=== PATIENT | female | born 1950 | race Hispanic/Latino ===

== ENCOUNTER 2016-08-13 08:58 | Inpatient (IN) | payer MEDICAID, MEDICARE ==
--- NOTE | 2016-08-13 09:25 | XRay Report ---
AP CHEST: HISTORY: chest pain Compared to 03/08/15. Heart size is borderline. Mild pulmonary venous congestion is suspected. Trace left pleural effusion is also suspected. No consolidation or pneumothorax. The bony structures are intact. IMPRESSION: Correlate for mild CHF or volume overload.
[2016-08-13 09:36] LABS: Hematocrit 33.5 % (30.3-42.9); Hemoglobin 10.5 gm/dl (10.1-14.3); Mean Corpuscular HGB Conc 31 % (30-34); Mean Corpuscular Hemoglobin 26 pg (28-32); Mean Corpuscular Volume 84 fl (79-97); Platelet Count 215 K/mm3 (140-440); Red Blood Count 3.99 M/mm3 (3.65-5.03); Red Cell Distribution Width 15.4 % (13.2-15.2); White Blood Count 9.8 K/mm3 (4.5-11.0)
[2016-08-13 09:53] LABS: Anion Gap 17 mmol/L; Blood Urea Nitrogen 9 mg/dL (7-17); Calcium 8.5 mg/dL (8.4-10.2); Carbon Dioxide 35 mmol/L (22-30); Chloride 96.1 mmol/L (98-107); Glucose 169 mg/dL (65-100); Potassium 3.9 mmol/L (3.6-5.0); Sodium 144 mmol/L (137-145)
[2016-08-13 09:55] LABS: ISTAT Base Excess 16; ISTAT HCO3 42.8; ISTAT PCO2 91.6 (35-45); ISTAT PH 7.277 (7.35-7.45); ISTAT PO2 64 (80-105); ISTAT SO2 87; ISTAT TCO2 46
[2016-08-13 10:18] LABS: Albumin 3.1 g/dL (3.9-5); Albumin/Globulin Ratio 0.8 %; Bilirubin,Total 0.3 mg/dL (0.1-1.2); INR 1.56 (0.87-1.13); Magnesium 2.6 mg/dL (1.7-2.3); Partial Thromboplastin Time 36.5 Sec. (24.2-36.6); Total Protein 6.8 g/dL (6.3-8.2)
--- NOTE | 2016-08-13 10:18 | Admit Criteria Form ---
Admission Criteria Documentation: RESPIRATORY FAILURE GRG Clinical Indications for Admission to Inpatient Care (Place 'X' for any and all applicable criteria): Hospital admission is needed for appropriate care of the patient because of acute respiratory failure or insufficiency as indicated by ANY ONE of the following(1)(2)(3)(4)(5)(6)(7)(8): [ X]I. Mechanical ventilation needed (acute invasive or noninvasive) [ ]II. Severe ventilation deficit as indicated by ANY ONE of the following (9) [ ]a) Respiratory acidosis (pH less than 7.32 and partial pressure of carbon dioxide greater than 40 mm Hg (5.3 kPa)) [ ]b) Partial pressure of carbon dioxide greater than 44 mm Hg (5.9 kPa ) (new) [ ]c) Airflow measurements less than 25% of predicted (eg, peak expiratory flow rate less than 100 L/minute) [ ]d) Forced vital capacity less than 15 mL/kg of ideal body weight, or 50% decrease in vital capacity from baseline [ ]III. Noncardiac pulmonary edema not resolving with rapid emergency treatment (8) [ ]IV. Severe respiratory distress as indicated by ANY ONE of the following: [ ]a) Severe tachypnea (respiratory rate greater than 30, greater than 45 for 6-month-old, greater than 60 for ) [ ]b) Severe hypoxemia (partial pressure of oxygen less than 50 mm Hg ( 6.7 kPa) on greater than 50% oxygen or partial pressure of oxygen to FIO2 ratio less than 200) [ ]c) Mental status deterioration from respiratory disease [ ]V. Airway obstruction or inadequate protection [A](10)(11) The original [employer] content created by [employer] has been revised. The portions of the content which have been revised are identified through the use of italic text or in bold, and [employer] has neither reviewed nor approved the modified material. All other unmodified content is copyright [employer]. Please see references footnoted in the original [employer] edition 2016 Admission Criteria Met: Yes
[2016-08-13 10:19] LABS: Bilirubin,Direct 0.2 mg/dL (0-0.2); Bilirubin,Indirect 0.1 mg/dL
[2016-08-13 10:27] LABS: Bilirubin,Urine NEG (Negative); Blood,Urine NEG (Negative); Ketones,Urine 20 mg/dL (Negative); Leukocyte Esterase,Urine NEG (Negative); Mucus,Urine FEW /HPF; Nitrite,Urine NEG (Negative); Protein,Urine <15 mg/dL mg/dL (Negative); Urobilinogen,Urine < 2.0 mg/dL (<2.0)
[2016-08-13 10:55] LABS: Basophils % (Manual) 0 % (0.0-1.8); Blastocytes % (Manual) 0 %; Eosinophils % (Manual) 0 % (0.0-4.3)
[2016-08-13 10:56] LABS: Diff Status Complete; Hypochromasia 1+; Ovalocytes Few; Stomatocytes 1+
--- NOTE | 2016-08-13 11:13 | History and Physical Report ---
History of Present Illness Date of examination: 08/13/16 Date of admission: 08/13/16 Chief complaint: Shortness of breath History of present illness: Patient is resident of SNF with history of COPD, anxiety, morbid obesity. She presented with shortness of breath and depressed conscious level. Chest x ray showed pulmonary edema. She was diagnosed with acute CHF, COPD eaxcerbation. She was in respiratory distress, therefore given Lasix iv, put on BIPAP and is being admitted. She is very lethargic now, on BIPAP and cannot provide much history. Past History Past Medical History: COPD, DVT, GERD, hypertension Past Surgical History: hysterectomy, tonsillectomy Social history: AND/DNR-allow natural , other (Lives in SNF) Family history: CAD Medications and Allergies Allergies Allergy/AdvReac Type Severity Reaction Status Date / Time Sulfa (Sulfonamide Allergy Anaphylaxis Verified 03/04/13 09:17 Antibiotics) Home Medications Medication Instructions Recorded Confirmed Last Taken Type ALPRAZolam [Xanax TAB] 0.5 mg PO QID PRN 08/13/16 08/13/16 Unknown History Albuterol Sulfate [Ventolin HFA] 2 puff IH Q4H PRN 08/13/16 08/13/16 Unknown History Baclofen [Lioresal] 10 mg PO TID 08/13/16 08/13/16 Unknown History Brimonidine 0.15% [Alphagan P 100 drops OD TID 08/13/16 08/13/16 Unknown History 0.15%] Budesoni/Formoterol 80-4.5(Nf) 2 puff IH BID 08/13/16 08/13/16 Unknown History [Symbicort 80-4.5 (Nf)] Cyanocobalamin [Vitamin B-12] 1,000 mcg IM QMONTH 08/13/16 08/13/16 Unknown History Famotidine [Pepcid] 10 mg PO BID 08/13/16 08/13/16 Unknown History Fluorometholone [Fml Forte 0.25% 1 drop OP QID 08/13/16 08/13/16 Unknown History eye drops] Furosemide [Lasix TAB] 40 mg PO QDAY 08/13/16 08/13/16 Unknown History Gabapentin [Neurontin] 800 mg PO Q8H 08/13/16 08/13/16 Unknown History Lactobac Cmb #3/Fos/Pantethine 1 each PO DAILY 08/13/16 08/13/16 Unknown History [Probiotic & Acidophilus Cap] Latanoprost 0.005% [Xalatan 0.005%] 1 drop OP QPM 08/13/16 08/13/16 Unknown History Loperamide [Imodium] 2 mg PO Q2HR PRN 08/13/16 08/13/16 Unknown History Mag Hydrox/Al Hydrox/Simeth 30 ml PO TID 08/13/16 08/13/16 Unknown History [Maalox Advanced Suspension] Melatonin/Pyridoxine [Melatonin 3 2 tab PO DAILY 08/13/16 08/13/16 Unknown History mg Tablet] Multivitamin Tab [Multiple Vitamin 1 each PO QDAY 08/13/16 08/13/16 Unknown History TAB (Theragran)] Oxycodone HCl/Acetaminophen 1 each PO Q6HR PRN 08/13/16 08/13/16 Unknown History [Percocet 7.5/325 mg] Potassium Citrate [Potassium 20 meq PO DAILY 08/13/16 08/13/16 Unknown History Citrate ER] Rivaroxaban [Xarelto] 15 mg PO QHS 08/13/16 08/13/16 Unknown History Sertraline [Zoloft] 50 mg PO QDAY 08/13/16 08/13/16 Unknown History amLODIPine [Norvasc] 10 mg PO DAILY 08/13/16 08/13/16 Unknown History guaiFENesin DM [Robitussin Dm] 10 ml PO Q6HR PRN 08/13/16 08/13/16 Unknown History methOCARBAMOL [Robaxin TAB] 500 mg PO Q6H PRN 08/13/16 08/13/16 Unknown History Review of Systems ROS unobtainable: due to mental status Exam - Physical Exam Narrative exam: Gen: appearance :Not in acute distress,morbidly obese HEENT: normocephalic, atraumatic Neck :supple no JVD Lungs: bilat basal crackles, no wheezes Heart:S1 and S2 regular, no murmurs, no gallop, no rubs Abdomen soft, non-tender, non-distended, normal bowel sounds Extremities: no edema, no clubbing, or cyanosis Neuro : Awake alert oriented 3, no focal neurological signs Psych: calm - Constitutional Vitals: Temp Pulse Resp BP Pulse Ox 98.2 F 97 H 40 H 122/73 85 08/13/16 09:03 08/13/16 09:05 08/13/16 09:16 08/13/16 09:05 08/13/16 09:16 General appearance: Present: no acute distress, other - EENT Eyes: Present: PERRL ENT: hearing intact, other (BIPAP mask on) - Neck Neck: Present: supple, normal ROM - Respiratory Respiratory effort: normal Respiratory: bilateral: diminished, rales, rhonchi - Cardiovascular Rhythm: regular Heart Sounds: Present: S1 & S2 (S1 and S2 reg) - Extremities Extremities: no ischemia, No edema, normal temperature, normal color - Abdominal General gastrointestinal: Present: soft, non-tender, non-distended, normal bowel sounds - Integumentary Integumentary: Present: warm, dry - Musculoskeletal Musculoskeletal: strength equal bilaterally - Psychiatric Psychiatric: appropriate mood/affect - Neurologic Neurologic: moves all extremities, other (Lethargic) Results - Labs CBC & Chem 7: 08/14/16 07:27 08/16/16 07:06 Labs: Abnormal lab results 08/13/16 08/13/16 08/13/16 Range/Units 09:01 09:20 09:20 MCH 26 L (28-32) pg RDW 15.4 H (13.2-15.2) % Seg Neuts % (Manual) 76.0 H (40.0-70.0) % Lymphocytes % (Manual) 10.0 L (13.4-35.0) % Lymphocytes # (Manual) 1.0 L (1.2-5.4) K/mm3 PT (12.2-14.9) Sec. INR (0.87-1.13) POC ABG pH (7.35-7.45) POC ABG pCO2 (35-45) POC ABG pO2 (80-105) Chloride 96.1 L (98-107) mmol/L Carbon Dioxide 35 H (22-30) mmol/L Creatinine 0.5 L (0.7-1.2) mg/dL Glucose 169 H (65-100) mg/dL POC Glucose 176 H (70-105) Magnesium (1.7-2.3) mg/dL Alkaline Phosphatase (35-129) units/L Albumin (3.9-5) g/dL 08/13/16 08/13/16 08/13/16 Range/Units 09:45 09:45 09:46 MCH (28-32) pg RDW (13.2-15.2) % Seg Neuts % (Manual) (40.0-70.0) % Lymphocytes % (Manual) (13.4-35.0) % Lymphocytes # (Manual) (1.2-5.4) K/mm3 PT 18.6 H (12.2-14.9) Sec. INR 1.56 H (0.87-1.13) POC ABG pH 7.277 L (7.35-7.45) POC ABG pCO2 91.6 H (35-45) POC ABG pO2 64 L (80-105) Chloride (98-107) mmol/L Carbon Dioxide (22-30) mmol/L Creatinine (0.7-1.2) mg/dL Glucose (65-100) mg/dL POC Glucose (70-105) Magnesium 2.60 H (1.7-2.3) mg/dL Alkaline Phosphatase 140 H (35-129) units/L Albumin 3.1 L (3.9-5) g/dL Assessment and Plan Acute on chronic resp failure with hypoxia and hypercarbiadue to COPD exacerbation and acute CHF. Admit to Tele, BIPAP, solumedrol, Lasix, supplemental Oxygen. Cardiology and Pulm consult Acute CHF. new diagnosis. get Echo, Lasix, cardiology COPD exacerbation. solumedrol, Duoneb Hypertension Acute metabolic encephalopathy due to hypercarbia History of DVT. On Xarelto DVT prophylaxis. On Xarelto DNR
[2016-08-13] MEDS ORDERED: LASIX IV ONE (11:15)
[2016-08-13] MEDS ORDERED: TYLENOL PO PRN (11:35)
[2016-08-13] MEDS ORDERED: ZOFRAN IV PRN (11:35)
[2016-08-13] MEDS ORDERED: MILK OF MAGNESIA PO PRN (11:35)
[2016-08-13] MEDS ORDERED: PROVENTIL IH PRN (11:35)
[2016-08-13] MEDS ORDERED: DULCOLAX PR PRN (11:35)
--- NOTE | 2016-08-13 11:39 | Emergency Department Report ---
ED Shortness of Breath HPI - General Chief Complaint: Dyspnea/Respdistress Stated Complaint: RESPIRATORY DISTRESS Time Seen by Provider: 08/13/16 09:21 Source: EMS Mode of arrival: Stretcher Limitations: Altered Mental Status - History of Present Illness Initial Comments: The patient is a long-term resident. I am told that she was administered "Lasix" prior to associate drafter arrival. Medics did not know the dose or the route. The patient was found to be in respiratory distress although her pulse oximetry they state was 90. She was somewhat stuporous I believe on their arrival as they stated that she was sleeping and they couldn't wake up. She arrives in a persistent obtunded condition. Paramedics placed the patient on Cipro And transported her for further evaluation. On arrival she is unable to provide any historical information. MD Complaint: shortness of breath -: Gradual, This morning Known History Of: congestive heart failure - Related Data Home Medications Medication Instructions Recorded Confirmed Last Taken Budesoni/Formoterol 80-4.5(Nf) 2 puff IH BID 03/19/14 11/04/15 03/05/15 [Symbicort 80-4.5 (Nf)] Ipratropium/Albuterol Sulfate 1 ampul IH Q6HRT 03/19/14 11/04/15 03/05/15 [Duoneb 0.5 mg-3 mg/3 ml Soln] Latanoprost [Xalatan 0.005% eye 1 drop OU QPM 03/19/14 11/04/15 03/05/15 drops] amLODIPine [Norvasc] 10 mg PO DAILY 03/19/14 11/04/15 03/05/15 ALPRAZolam [Xanax TAB] 1 mg PO QID 11/04/15 11/04/15 Unknown Albuterol Sulfate [Ventolin HFA] 2 puff IH Q4H PRN 11/04/15 11/04/15 Unknown Baclofen [Lioresal] 10 mg PO QHS 11/04/15 11/04/15 Unknown Brimonidine 0.15% [Alphagan P 1 drops OP Q8H 11/04/15 11/04/15 Unknown 0.15%] Cyanocobalamin [Vitamin B-12] 1,000 mcg IM QMONTH 11/04/15 11/04/15 Unknown Fluorometholone [Fml] 5 ml OP QID 11/04/15 11/04/15 Unknown Gabapentin [Neurontin] 600 mg PO Q8H 11/04/15 11/04/15 Unknown Ibuprofen [Motrin] 600 mg PO Q8H PRN 11/04/15 11/04/15 Unknown Lactobac Cmb #3/Fos/Pantethine 1 each PO DAILY 11/04/15 11/04/15 Unknown [Probiotic & Acidophilus Cap] Melatonin 3 mg PO QHS 11/04/15 11/04/15 Unknown Methocarbamol [Robaxin TAB] 750 mg PO Q6H 11/04/15 11/04/15 Unknown Morphine Sulfate [Morphine Sulfate 15 mg PO BID 11/04/15 11/04/15 Unknown ER] Oxycodone HCl/Acetaminophen 1 each PO Q6HR 11/04/15 11/04/15 Unknown [Percocet 10/325 mg] Rivaroxaban [Xarelto] 1 tab PO QHS 11/04/15 11/04/15 Unknown Sertraline [Zoloft] 25 mg PO QDAY 11/04/15 11/04/15 Unknown Previous Rx's Medication Instructions Recorded Last Taken Type Famotidine [Pepcid] 10 mg PO BID #20 tablet 03/11/15 Unknown Rx Nicotine [Habitrol] 21 mg TD QDAY patch 03/11/15 Unknown Rx predniSONE [Deltasone] 10 mg PO QDAY #30 tablet 03/11/15 Unknown Rx Clindamycin [Clindamycin CAP] 300 mg PO Q8H #20 cap 11/04/15 Unknown Rx Allergies Allergy/AdvReac Type Severity Reaction Status Date / Time Sulfa (Sulfonamide Allergy Anaphylaxis Verified 03/04/13 09:17 Antibiotics) ED Review of Systems ROS: Stated complaint: RESPIRATORY DISTRESS Other details as noted in HPI Comment: Unobtainable due to pts medical conditions ED Past Medical Hx - Past Medical History Hx Hypertension: Yes Hx Deep Vein Thrombosis: Yes Hx GERD: Yes Hx COPD: Yes Additional medical history: fx back, chronic back pain. sleep apnea, spinal fracture,DVT,anxiety,medication overdose - Surgical History Additional Surgical History: partial hysterectomy. tonsillectomy - Social History Smoking Status: Unknown if ever smoked - Medications Home Medications: Home Medications Medication Instructions Recorded Confirmed Last Taken Type Budesoni/Formoterol 80-4.5(Nf) 2 puff IH BID 03/19/14 11/04/15 03/05/15 History [Symbicort 80-4.5 (Nf)] Ipratropium/Albuterol Sulfate 1 ampul IH Q6HRT 03/19/14 11/04/15 03/05/15 History [Duoneb 0.5 mg-3 mg/3 ml Soln] Latanoprost [Xalatan 0.005% eye 1 drop OU QPM 03/19/14 11/04/15 03/05/15 History drops] amLODIPine [Norvasc] 10 mg PO DAILY 03/19/14 11/04/15 03/05/15 History Famotidine [Pepcid] 10 mg PO BID #20 tablet 03/11/15 11/04/15 Unknown Rx Nicotine [Habitrol] 21 mg TD QDAY patch 03/11/15 11/04/15 Unknown Rx predniSONE [Deltasone] 10 mg PO QDAY #30 tablet 03/11/15 11/04/15 Unknown Rx ALPRAZolam [Xanax TAB] 1 mg PO QID 11/04/15 11/04/15 Unknown History Albuterol Sulfate [Ventolin HFA] 2 puff IH Q4H PRN 11/04/15 11/04/15 Unknown History Baclofen [Lioresal] 10 mg PO QHS 11/04/15 11/04/15 Unknown History Brimonidine 0.15% [Alphagan P 1 drops OP Q8H 11/04/15 11/04/15 Unknown History 0.15%] Clindamycin [Clindamycin CAP] 300 mg PO Q8H #20 cap 11/04/15 Unknown Rx Cyanocobalamin [Vitamin B-12] 1,000 mcg IM QMONTH 11/04/15 11/04/15 Unknown History Fluorometholone [Fml] 5 ml OP QID 11/04/15 11/04/15 Unknown History Gabapentin [Neurontin] 600 mg PO Q8H 11/04/15 11/04/15 Unknown History Ibuprofen [Motrin] 600 mg PO Q8H PRN 11/04/15 11/04/15 Unknown History Lactobac Cmb #3/Fos/Pantethine 1 each PO DAILY 11/04/15 11/04/15 Unknown History [Probiotic & Acidophilus Cap] Melatonin 3 mg PO QHS 11/04/15 11/04/15 Unknown History Methocarbamol [Robaxin TAB] 750 mg PO Q6H 11/04/15 11/04/15 Unknown History Morphine Sulfate [Morphine Sulfate 15 mg PO BID 11/04/15 11/04/15 Unknown History ER] Oxycodone HCl/Acetaminophen 1 each PO Q6HR 11/04/15 11/04/15 Unknown History [Percocet 10/325 mg] Rivaroxaban [Xarelto] 1 tab PO QHS 11/04/15 11/04/15 Unknown History Sertraline [Zoloft] 25 mg PO QDAY 11/04/15 11/04/15 Unknown History ED Physical Exam - General Limitations: Other General appearance: obtunded - Head Head exam: Present: atraumatic, normocephalic - Eye Eye exam: Absent: scleral icterus - ENT ENT exam: Present: mucous membranes dry - Neck Neck exam: Absent: tenderness, meningismus - Respiratory Respiratory exam: Present: respiratory distress, decreased breath sounds - Cardiovascular Cardiovascular Exam: Present: regular rate, normal rhythm. Absent: systolic murmur, diastolic murmur, rubs, gallop - GI/Abdominal GI/Abdominal exam: Present: soft, normal bowel sounds. Absent: distended, tenderness, guarding, rebound - Extremities Exam Extremities exam: Present: pedal edema. Absent: calf tenderness - Back Exam Back exam: Present: other (not fully visualized) - Neurological Exam Neurological exam: Present: other (no acute focal deficit) ED Course Vital Signs 08/13/16 08/13/16 08/13/16 09:03 09:05 09:16 Temperature 98.2 F Pulse Rate 102 H 97 H Respiratory 26 H 40 H Rate Blood Pressure 122/73 122/73 O2 Sat by Pulse 91 98 85 Oximetry ED Medical Decision Making - Lab Data Result diagrams: 08/13/16 09:20 08/13/16 09:20 Laboratory Results - last 24 hr 08/13/16 08/13/16 08/13/16 09:01 09:20 09:20 WBC 9.8 RBC 3.99 Hgb 10.5 Hct 33.5 MCV 84 MCH 26 L MCHC 31 RDW 15.4 H Plt Count 215 Add Manual Diff Complete Total Counted 100 Seg Neuts % (Manual) 76.0 H Band Neutrophils % 7.0 Lymphocytes % (Manual) 10.0 L Reactive Lymphs % (Man) 0 Monocytes % (Manual) 7.0 Eosinophils % (Manual) 0 Basophils % (Manual) 0 Metamyelocytes % 0 Myelocytes % 0 Promyelocytes % 0 Blast Cells % 0 Nucleated RBC % Not Reportable Seg Neutrophils # Man 7.4 Band Neutrophils # 0.7 Lymphocytes # (Manual) 1.0 L Abs React Lymphs (Man) 0.0 Monocytes # (Manual) 0.7 Eosinophils # (Manual) 0.0 Basophils # (Manual) 0.0 Metamyelocytes # 0.0 Myelocytes # 0.0 Promyelocytes # 0.0 Blast Cells # 0.0 WBC Morphology Not Reportable Hypersegmented Neuts Not Reportable Hyposegmented Neuts Not Reportable Hypogranular Neuts Not Reportable Smudge Cells Not Reportable Toxic Granulation Not Reportable Toxic Vacuolation Not Reportable Dohle Bodies Not Reportable Pelger-Huet Anomaly Not Reportable Ke Rods Not Reportable Platelet Estimate Appears normal Clumped Platelets Not Reportable Plt Clumps, EDTA Not Reportable Large Platelets Not Reportable Giant Platelets Not Reportable Platelet Satelliting Not Reportable Plt Morphology Comment Not Reportable RBC Morphology Not Reportable Dimorphic RBCs Not Reportable Polychromasia Not Reportable Hypochromasia 1+ Poikilocytosis Not Reportable Anisocytosis Not Reportable Microcytosis Not Reportable Macrocytosis Not Reportable Spherocytes Not Reportable Pappenheimer Bodies Not Reportable Sickle Cells Not Reportable Target Cells Not Reportable Tear Drop Cells Not Reportable Ovalocytes Few Stomatocytes 1+ Helmet Cells Not Reportable Summers-Shambaugh Bodies Not Reportable Haines Rings Not Reportable Caleb Cells Not Reportable Bite Cells Not Reportable Crenated Cell Not Reportable Elliptocytes Not Reportable Acanthocytes (Spur) Not Reportable Rouleaux Not Reportable Hemoglobin C Crystals Not Reportable Schistocytes Not Reportable Malaria parasites Not Reportable Sanjeev Bodies Not Reportable Hem Pathologist Commnt No PT INR APTT POC ABG pH POC ABG pCO2 POC ABG pO2 POC ABG HCO3 POC ABG Total CO2 POC ABG O2 Sat POC ABG Base Excess FiO2 Sodium 144 Potassium 3.9 Chloride 96.1 L Carbon Dioxide 35 H Anion Gap 17 BUN 9 Creatinine 0.5 L Estimated GFR > 60 BUN/Creatinine Ratio 18.00 Glucose 169 H POC Glucose 176 H Lactic Acid Calcium 8.5 Magnesium Total Bilirubin Direct Bilirubin Indirect Bilirubin AST ALT Alkaline Phosphatase Troponin T < 0.010 NT-Pro-B Natriuret Pep Total Protein Albumin Albumin/Globulin Ratio Urine Color Urine Turbidity Urine pH Ur Specific Homer Urine Protein Urine Glucose (UA) Urine Ketones Urine Blood Urine Nitrite Urine Bilirubin Urine Urobilinogen Ur Leukocyte Esterase Urine WBC (Auto) Urine RBC (Auto) U Epithel Cells (Auto) Urine Mucus Blood Type Antibody Screen KARLA Antibody Screen 08/13/16 08/13/16 08/13/16 09:45 09:45 09:45 WBC RBC Hgb Hct MCV MCH MCHC RDW Plt Count Add Manual Diff Total Counted Seg Neuts % (Manual) Band Neutrophils % Lymphocytes % (Manual) Reactive Lymphs % (Man) Monocytes % (Manual) Eosinophils % (Manual) Basophils % (Manual) Metamyelocytes % Myelocytes % Promyelocytes % Blast Cells % Nucleated RBC % Seg Neutrophils # Man Band Neutrophils # Lymphocytes # (Manual) Abs React Lymphs (Man) Monocytes # (Manual) Eosinophils # (Manual) Basophils # (Manual) Metamyelocytes # Myelocytes # Promyelocytes # Blast Cells # WBC Morphology Hypersegmented Neuts Hyposegmented Neuts Hypogranular Neuts Smudge Cells Toxic Granulation Toxic Vacuolation Dohle Bodies Pelger-Huet Anomaly Ke Rods Platelet Estimate Clumped Platelets Plt Clumps, EDTA Large Platelets Giant Platelets Platelet Satelliting Plt Morphology Comment RBC Morphology Dimorphic RBCs Polychromasia Hypochromasia Poikilocytosis Anisocytosis Microcytosis Macrocytosis Spherocytes Pappenheimer Bodies Sickle Cells Target Cells Tear Drop Cells Ovalocytes Stomatocytes Helmet Cells Summers-Shambaugh Bodies Haines Rings Caleb Cells Bite Cells Crenated Cell Elliptocytes Acanthocytes (Spur) Rouleaux Hemoglobin C Crystals Schistocytes Malaria parasites Sanjeev Bodies Hem Pathologist Commnt PT 18.6 H INR 1.56 H APTT 36.5 POC ABG pH POC ABG pCO2 POC ABG pO2 POC ABG HCO3 POC ABG Total CO2 POC ABG O2 Sat POC ABG Base Excess FiO2 Sodium Potassium Chloride Carbon Dioxide Anion Gap BUN Creatinine Estimated GFR BUN/Creatinine Ratio Glucose POC Glucose Lactic Acid 1.20 Calcium Magnesium 2.60 H Total Bilirubin 0.30 Direct Bilirubin 0.2 Indirect Bilirubin 0.1 AST 12 ALT 9 Alkaline Phosphatase 140 H Troponin T NT-Pro-B Natriuret Pep 695.0 Total Protein 6.8 Albumin 3.1 L Albumin/Globulin Ratio 0.8 Urine Color Urine Turbidity Urine pH Ur Specific Homer Urine Protein Urine Glucose (UA) Urine Ketones Urine Blood Urine Nitrite Urine Bilirubin Urine Urobilinogen Ur Leukocyte Esterase Urine WBC (Auto) Urine RBC (Auto) U Epithel Cells (Auto) Urine Mucus Blood Type Antibody Screen KARLA Antibody Screen 08/13/16 08/13/16 08/13/16 09:46 10:07 10:10 WBC RBC Hgb Hct MCV MCH MCHC RDW Plt Count Add Manual Diff Total Counted Seg Neuts % (Manual) Band Neutrophils % Lymphocytes % (Manual) Reactive Lymphs % (Man) Monocytes % (Manual) Eosinophils % (Manual) Basophils % (Manual) Metamyelocytes % Myelocytes % Promyelocytes % Blast Cells % Nucleated RBC % Seg Neutrophils # Man Band Neutrophils # Lymphocytes # (Manual) Abs React Lymphs (Man) Monocytes # (Manual) Eosinophils # (Manual) Basophils # (Manual) Metamyelocytes # Myelocytes # Promyelocytes # Blast Cells # WBC Morphology Hypersegmented Neuts Hyposegmented Neuts Hypogranular Neuts Smudge Cells Toxic Granulation Toxic Vacuolation Dohle Bodies Pelger-Huet Anomaly Ke Rods Platelet Estimate Clumped Platelets Plt Clumps, EDTA Large Platelets Giant Platelets Platelet Satelliting Plt Morphology Comment RBC Morphology Dimorphic RBCs Polychromasia Hypochromasia Poikilocytosis Anisocytosis Microcytosis Macrocytosis Spherocytes Pappenheimer Bodies Sickle Cells Target Cells Tear Drop Cells Ovalocytes Stomatocytes Helmet Cells Summers-Shambaugh Bodies Haines Rings Caleb Cells Bite Cells Crenated Cell Elliptocytes Acanthocytes (Spur) Rouleaux Hemoglobin C Crystals Schistocytes Malaria parasites Sanjeev Bodies Hem Pathologist Commnt PT INR APTT POC ABG pH 7.277 L POC ABG pCO2 91.6 H POC ABG pO2 64 L POC ABG HCO3 42.8 POC ABG Total CO2 46 POC ABG O2 Sat 87 POC ABG Base Excess 16 FiO2 30 Sodium Potassium Chloride Carbon Dioxide Anion Gap BUN Creatinine Estimated GFR BUN/Creatinine Ratio Glucose POC Glucose Lactic Acid Calcium Magnesium Total Bilirubin Direct Bilirubin Indirect Bilirubin AST ALT Alkaline Phosphatase Troponin T NT-Pro-B Natriuret Pep Total Protein Albumin Albumin/Globulin Ratio Urine Color Yellow Urine Turbidity Clear Urine pH 5.0 Ur Specific Homer 1.013 Urine Protein <15 mg/dl Urine Glucose (UA) Neg Urine Ketones 20 Urine Blood Neg Urine Nitrite Neg Urine Bilirubin Neg Urine Urobilinogen < 2.0 Ur Leukocyte Esterase Neg Urine WBC (Auto) 1.0 Urine RBC (Auto) 2.0 U Epithel Cells (Auto) < 1.0 Urine Mucus Few Blood Type O POSITIVE Antibody Screen TNR KARLA Antibody Screen Negative - EKG Data -: EKG Interpreted by Me EKG shows normal: sinus rhythm, axis, intervals, QRS complexes, ST-T waves Rate: normal - EKG Data Interpretation: no acute changes - Radiology Data interpreted by me: Patient improved on BiPAP. Her blood gas was consistent with hypercapnic respiratory failure. She was given additional Lasix. She was admitted by Dr. Whitney to the hospitalist service. It is noted that she has a fully executed DO NOT RESUSCITATE. Critical Care Time: Yes Critical care time in (mins) excluding proc time.: 35 Critical care attestation.: If time is entered above; I have spent that time in minutes in the direct care of this critically ill patient, excluding procedure time. ED Disposition Clinical Impression: Congestive heart failure Qualifiers: Congestive heart failure type: combined Congestive heart failure chronicity: acute on chronic Qualified Code(s): I50.43 - Acute on chronic combined systolic (congestive) and diastolic (congestive) heart failure Hypercapnic respiratory failure Qualifiers: Chronicity: acute on chronic Qualified Code(s): J96.22 - Acute and chronic respiratory failure with hypercapnia Disposition: 09 OP ADMIT IP TO THIS HOSP Is pt being admited?: Yes Does the pt Need Aspirin: Yes Condition: Stable Referrals: PRIMARY CARE, [Primary Care Provider] - 3-5 Days
[2016-08-13] MEDS ORDERED: BABY ASPIRIN PO ONE (12:00)
[2016-08-13] MEDS: ZOSYN/NS 4.5GM/100ML 4.5 GM/100 ML VIAL IV SCH ×3 (12:15→23:27)
[2016-08-13] MEDS: LEVAQUIN 750MG/150ML 750 MG/150 ML BAG IV SCH (13:29)
[2016-08-13 14:44] LABS: ISTAT Base Excess 24; ISTAT PCO2 81.4 (35-45); ISTAT PH 7.387 (7.35-7.45); ISTAT PO2 76 (80-105); ISTAT SO2 94; ISTAT TCO2 > 50
[2016-08-13] MEDS ORDERED: WATER FOR INJ (PF) 10 ML ONE ×2 (15:23→21:04)
[2016-08-13] MEDS: HEPARIN SUB-Q SCH ×2 (15:33→21:33)
--- NOTE | 2016-08-13 16:39 | Consultation ---
History of Present Illness Consult date: 08/13/16 Requesting physician: LOREE GIRON Reason for consult: COPD (A), other (Acute on Chronic hypoxemic Hypercapnic Respiratory Failure) History of present illness: PULMONARY/CCM CONSULT NOTE (Full dictation # [id number]) Please see dictated notes for full details Medications and Allergies Allergies Allergy/AdvReac Type Severity Reaction Status Date / Time Sulfa (Sulfonamide Allergy Anaphylaxis Verified 03/04/13 09:17 Antibiotics) Home Medications Medication Instructions Recorded Confirmed Last Taken Type ALPRAZolam [Xanax TAB] 0.5 mg PO QID PRN 08/13/16 08/13/16 Unknown History Albuterol Sulfate [Ventolin HFA] 2 puff IH Q4H PRN 08/13/16 08/13/16 Unknown History Baclofen [Lioresal] 10 mg PO TID 08/13/16 08/13/16 Unknown History Brimonidine 0.15% [Alphagan P 100 drops OD TID 08/13/16 08/13/16 Unknown History 0.15%] Budesoni/Formoterol 80-4.5(Nf) 2 puff IH BID 08/13/16 08/13/16 Unknown History [Symbicort 80-4.5 (Nf)] Cyanocobalamin [Vitamin B-12] 1,000 mcg IM QMONTH 08/13/16 08/13/16 Unknown History Famotidine [Pepcid] 10 mg PO BID 08/13/16 08/13/16 Unknown History Fluorometholone [Fml Forte 0.25% 1 drop OP QID 08/13/16 08/13/16 Unknown History eye drops] Furosemide [Lasix TAB] 40 mg PO QDAY 08/13/16 08/13/16 Unknown History Gabapentin [Neurontin] 800 mg PO Q8H 08/13/16 08/13/16 Unknown History Lactobac Cmb #3/Fos/Pantethine 1 each PO DAILY 08/13/16 08/13/16 Unknown History [Probiotic & Acidophilus Cap] Latanoprost 0.005% [Xalatan 0.005%] 1 drop OP QPM 08/13/16 08/13/16 Unknown History Loperamide [Imodium] 2 mg PO Q2HR PRN 08/13/16 08/13/16 Unknown History Mag Hydrox/Al Hydrox/Simeth 30 ml PO TID 08/13/16 08/13/16 Unknown History [Maalox Advanced Suspension] Melatonin/Pyridoxine [Melatonin 3 2 tab PO DAILY 08/13/16 08/13/16 Unknown History mg Tablet] Multivitamin Tab [Multiple Vitamin 1 each PO QDAY 08/13/16 08/13/16 Unknown History TAB (Theragran)] Oxycodone HCl/Acetaminophen 1 each PO Q6HR PRN 08/13/16 08/13/16 Unknown History [Percocet 7.5/325 mg] Potassium Citrate [Potassium 20 meq PO DAILY 08/13/16 08/13/16 Unknown History Citrate ER] Rivaroxaban [Xarelto] 15 mg PO QHS 08/13/16 08/13/16 Unknown History Sertraline [Zoloft] 50 mg PO QDAY 08/13/16 08/13/16 Unknown History amLODIPine [Norvasc] 10 mg PO DAILY 08/13/16 08/13/16 Unknown History guaiFENesin DM [Robitussin Dm] 10 ml PO Q6HR PRN 08/13/16 08/13/16 Unknown History methOCARBAMOL [Robaxin TAB] 500 mg PO Q6H PRN 08/13/16 08/13/16 Unknown History Active Meds: Active Medications Acetaminophen (Tylenol) 650 mg PO Q4H PRN PRN Reason: Pain MILD(1-3)/Fever >100.5/MARTINEZ Albuterol (Proventil) 2.5 mg IH Q3HRT PRN PRN Reason: Shortness Of Breath Albuterol/Ipratropium (Duoneb 0.5 Mg-3 Mg/3 Ml Soln) 1 ampul IH Q6HRT [facility] Bisacodyl (Dulcolax) 10 mg VT QDAY PRN PRN Reason: Constipation unrelieved by MOM Heparin Sodium (Porcine) (Heparin) 5,000 unit SUB-Q Q8HR [facility] Last Admin: 08/13/16 15:33 Dose: 5,000 unit Levofloxacin/Dextrose (Levaquin 750mg/150ml) 750 mg in 150 mls @ 100 mls/hr IV Q24HR [facility] PRN Reason: Protocol Last Admin: 08/13/16 13:29 Dose: 100 mls/hr Piperacillin Sod/Tazobactam Sod (Zosyn/Ns 4.5gm/100ml) 4.5 gm in 100 mls @ 200 mls/hr IV Q6HR [facility] PRN Reason: Protocol Last Admin: 08/13/16 12:15 Dose: 200 mls/hr Magnesium Hydroxide (Milk Of Magnesia) 30 ml PO Q4H PRN PRN Reason: Constipation Methylprednisolone Sodium Succinate (Solu-Medrol) 80 mg IV Q8HR [facility] Last Admin: 08/13/16 15:33 Dose: 80 mg Ondansetron HCl (Zofran) 4 mg IV Q6H PRN PRN Reason: Nausea And Vomiting Physical Examination Vital signs: Vital Signs Pulse Ox 93 08/13/16 08:59 Results - Laboratory Findings CBC and BMP: 08/13/16 09:20 08/13/16 09:20 ABG POC ABG pH 7.387 (7.35-7.45) 08/13/16 14:33 POC ABG pCO2 81.4 (35-45) H 08/13/16 14:33 POC ABG pO2 76 (80-105) L 08/13/16 14:33 POC ABG HCO3 49.0 08/13/16 14:33 POC ABG Total CO2 > 50 08/13/16 14:33 POC ABG O2 Sat 94 08/13/16 14:33 PT/INR, D-dimer PT 18.6 Sec. (12.2-14.9) H 08/13/16 09:45 INR 1.56 (0.87-1.13) H 08/13/16 09:45 Abnormal lab findings: Abnormal Labs 08/13/16 14:33 POC ABG pCO2 81.4 H POC ABG pO2 76 L
[2016-08-13] MEDS: DUONEB 0.5 MG-3 MG/3 ML SOLN IH SCH ×2 (16:54→20:28)
[2016-08-13] MEDS ORDERED: NITROSTAT SL PRN (17:12)
[2016-08-13] MEDS ORDERED: MELATONIN PO SCH (17:15)
[2016-08-13] MEDS ORDERED: NON-FORMULARY (Gabapentin [Neurontin] 800 MG) PO SCH (17:15)
[2016-08-13] MEDS ORDERED: PYRIDOXINE PO SCH (17:15)
[2016-08-13] MEDS: ROBITUSSIN DM PO PRN (17:50)
[2016-08-13] MEDS: ROBAXIN PO PRN (17:51)
[2016-08-13] MEDS: XANAX PO PRN (17:51)
[2016-08-13] MEDS: LASIX IV SCH (17:51)
[2016-08-13] MEDS ORDERED: NON-FORMULARY (Fluorometholone [Fml Forte 0.25% Eye Drops] 1 DROP) OP SCH (18:00)
[2016-08-13] MEDS ORDERED: LATANOPROST 0.005% OP SCH (18:00)
[2016-08-13] MEDS: BROVANA NEBU IH SCH ×2 (20:28→21:00)
[2016-08-13] MEDS: PULMICORT IH SCH (20:28)
[2016-08-13] MEDS: XALATAN 0.005% OU SCH (21:32)
[2016-08-13] MEDS: ALUM-MAG HYDROX-SIMETH 200-200-20MG/5ML PO SCH (21:33)
[2016-08-13] MEDS: ALPHAGAN P 0.15% OD SCH (21:33)
[2016-08-13] MEDS: NEURONTIN PO SCH (21:33)
[2016-08-13] MEDS: PEPCID PO SCH (21:34)
[2016-08-13] MEDS: XARELTO PO SCH (21:34)
[2016-08-13] MEDS: LIORESAL PO SCH (21:34)
[2016-08-13] MEDS ORDERED: NON-FORMULARY (Budesoni/Formoterol 80-4.5(Nf) 2 PUFF) IH SCH (22:00)
[2016-08-14] MEDS: DUONEB 0.5 MG-3 MG/3 ML SOLN IH SCH ×4 (02:59→20:05)
[2016-08-14] MEDS: XANAX PO PRN ×3 (03:03→21:35)
[2016-08-14] MEDS: ROBAXIN PO PRN ×2 (03:03→19:22)
[2016-08-14] MEDS ORDERED: WATER FOR INJ (PF) 10 ML ONE (05:04)
[2016-08-14] MEDS: ZOSYN/NS 4.5GM/100ML 4.5 GM/100 ML VIAL IV SCH ×3 (05:27→18:22)
[2016-08-14] MEDS: LASIX IV SCH ×2 (05:28→18:23)
[2016-08-14] MEDS: HEPARIN SUB-Q SCH (05:29)
[2016-08-14] MEDS: NEURONTIN PO SCH ×3 (05:31→21:36)
--- NOTE | 2016-08-14 06:00 | Consultation ---
PULMONARY CONSULT NOTE CONSULTING PHYSICIAN: Jerel Whitney MD REASON FOR CONSULTATION: Acute respiratory failure. CHIEF COMPLAINT AND HISTORY OF PRESENT ILLNESS: The patient is a 66-year-old female who apparently known to me from an admission in 2016. She is obese. She has a history, I believe, of congestive heart failure. She stated that she does not remember how she got to the hospital today. Over the past week, she has complained to her home nurses of increasing shortness of breath, cough, mostly nonproductive. She denied any fevers or chills. She denied any sick contacts. She denied any real change in her diuretic medications. She is on home oxygen and has been using all her medications as prescribed. Early today she remembers waking up in the Emergency Room, reportedly she was found to be in respiratory distress. She was stuporous . She could not be aroused in the Emergency Room. Initially, a critical care evaluation revealed that the patient was hypercapnic and she also had a fully executed do not resuscitate according to the records. As a result of that, she was put on bilevel positive airway pressure ventilation therapy. I was called with the numbers and I gave instructions to increase the BiPAP minute ventilation. When I called stopped by to see her, she was able to be off BiPAP, feeling a little bit better. She gave me most of the history above. Now, with regards to tobacco use/abuse history, she has a 20+ pack year tobacco smoking history. That really is as much of the history of presentation as I have. PAST MEDICAL HISTORY: History of hypertension, deep venous thrombosis, gastroesophageal reflux disease, COPD, history of chronic back pain, sleep apnea, anxiety and she is obese. PAST SURGICAL HISTORY: She has had a partial hysterectomy and tonsillectomy. MEDICATIONS: She was on at the time I stopped by to see her, according to the medication administration record included the following: Tylenol 650 mg p.o. q. 4 hours p.r.n. mild pain, DuoNeb treatments nebulized q. 6 hours, heparin sodium 5000 units subQ q. 8 hours, p.r.n., Dulcolax, Levaquin 750 mg IV daily, Solu-Medrol 80 mg IV q. 8 hours., Zofran 4 mg IV q. 6 hours p.r.n. nausea and vomiting, Zosyn 4.5 g IV q. 6 hours. ALLERGIES: SULFA DRUGS, NATURE OF THIS ALLERGY IS UNKNOWN. DIET: Obese lady. Denies significant weight loss or gain preceding few weeks to months. FAMILY AND SOCIAL HISTORY: Lives in the community, 20+ pack year tobacco smoking history. Denies alcohol or illicit drug use or abuse. REVIEW OF SYSTEMS: She was essentially obtunded by the time she showed up earlier on. She denies gross hematochezia or melena. Denies gross hematuria or dysuria. No hematemesis. No hemoptysis. She does have a cough, clear phlegm when it is productive. No headache. Complete review of systems obtained. Pertinent positives and/or negatives as in body of history above, otherwise they are noncontributory. PHYSICAL EXAMINATION: VITAL SIGNS: At initial presentation in the Emergency Room, vital signs shows that she was afebrile, temperature 98.2, pulse 102, respiratory rate up to 40, blood pressure 122/73, oxygen sats was as low as 85, inspired oxygen concentration was not recorded. HEAD, EYES, EARS NOSE AND THROAT: Pupils are equal and round about 3-4 mm, reactive to light. Extraocular muscle movements are intact. Oropharynx is a Mallampati #3 oropharynx with mild oropharyngeal pallor. LUNGS: Auscultation of both lung baldwin revealed bilateral expiratory wheezes, prolonged expiratory phase and diminished bilateral breath sounds. NECK: Grossly, there are no palpable lymph nodes in the supraclavicular or submandibular lymph node chains. HEART: Heart sounds 1 and 2 are heard, regular rate and rhythm at time of my evaluation. ABDOMEN: Soft, full, bowel sounds are positive, nontender. EXTREMITIES: With trace right pedal pitting edema, but some redness from mid shins down bilaterally with some tenderness. NEUROLOGIC: The exam was grossly nonfocal. LABORATORY DATA: From my review as follows: White cell count 9800, hemoglobin 10.5, hematocrit 33.5, platelets 215. No manual differential. INR was 1.56 at presentation. Arterial blood gas at presentation showed a pH of 7.28, pCO2 of 92, pO2 of 64,000, 30% FiO2. After the BiPAP changes, pH of 7.39, pCO2 is 81, pO2 is 76,000, 40% FIO2. Serum sodium 144, potassium 3.9, chloride 96, bicarbonate 35, BUN 9, creatinine 0.5 and glucose is 169. Lactic acid level was within normal limits at 1.20. Liver function tests essentially within normal limits. Urinalysis was negative for nitrites and leukocyte esterase and really was bland. MICROBIOLOGY STUDIES: Blood cultures have been drawn, there are no growth to date. Radiographic studies have been done. I have reviewed the radiologist's interpretation. I am pulling up the films. Radiologist reads the x-ray as mild CHF or volume overload. ASSESSMENT AND PLAN: We have an elderly lady in here with what seems to be a chronic obstructive pulmonary disease exacerbation, triggered likely by chronic obstructive pulmonary disease exacerbation. From a respiratory standpoint, we will continue BiPAP therapy, but I will be scheduled at bedtime. Aspiration precautions will be maintained. Oxygen will be weaned to keep sats greater than about 92%. We will continue empiric broad spectrum antibiotics, both for community-acquired pneumonia therapy, but I believe she may be developing cellulitis of lower extremities. I will get a CRP level and titrate as necessary during this admission. I will add long acting bronchodilators and also begin to reduce the systemic steroid dose. Diuretics will be scheduled in the short. I will get her BUN and creatinine on the dry side and congestive heart failure. She is appropriately on deep venous thrombosis prophylaxis. She will be placed on gastrointestinal prophylaxis. Flu and pneumonia vaccination will be per protocol. Thank you very much for the consult, DR. Whitney. We will follow along and make further recommendations as picture progresses/becomes clearer. JOB# [id number] CIERA/RODRIGO
[2016-08-14 08:03] LABS: Hematocrit 35.3 % (30.3-42.9); Hemoglobin 11.3 gm/dl (10.1-14.3); Mean Corpuscular HGB Conc 32 % (30-34); Mean Corpuscular Hemoglobin 27 pg (28-32); Mean Corpuscular Volume 84 fl (79-97); Platelet Count 272 K/mm3 (140-440); Red Blood Count 4.22 M/mm3 (3.65-5.03); Red Cell Distribution Width 15.5 % (13.2-15.2); White Blood Count 7.9 K/mm3 (4.5-11.0)
[2016-08-14 08:23] LABS: Blood Urea Nitrogen 10 mg/dL (7-17); Calcium 8.6 mg/dL (8.4-10.2); Chloride 91.9 mmol/L (98-107); Glucose 180 mg/dL (65-100); Potassium 3.6 mmol/L (3.6-5.0); Sodium 146 mmol/L (137-145)
[2016-08-14 08:25] LABS: Anion Gap 15 mmol/L; Carbon Dioxide 43 mmol/L (22-30)
[2016-08-14 09:22] LABS: Basophils % (Manual) 0 % (0.0-1.8); Blastocytes % (Manual) 0 %; Eosinophils % (Manual) 0 % (0.0-4.3); Hypochromasia 1+; Stomatocytes 1+
[2016-08-14 09:23] LABS: Diff Status Complete; Ovalocytes Few
[2016-08-14] MEDS: BROVANA NEBU IH SCH ×2 (09:30→20:04)
[2016-08-14] MEDS: PULMICORT IH SCH ×2 (09:30→20:05)
[2016-08-14] MEDS ORDERED: [UNRECOGNIZED DRUG - OTHER] PO SCH (10:00)
[2016-08-14] MEDS ORDERED: NORVASC PO SCH (10:00)
[2016-08-14] MEDS ORDERED: NON-FORMULARY (Oxycodone Hcl/Acetaminophen [Percocet 7.5/325 Mg] 1 EACH) PO PRN (10:03)
[2016-08-14] MEDS: ALPHAGAN P 0.15% OD SCH ×3 (10:40→20:25)
[2016-08-14] MEDS: LEVAQUIN 750MG/150ML 750 MG/150 ML BAG IV SCH (10:40)
[2016-08-14] MEDS: ALUM-MAG HYDROX-SIMETH 200-200-20MG/5ML PO SCH ×3 (10:40→20:25)
[2016-08-14] MEDS: ZOLOFT PO SCH (10:41)
[2016-08-14] MEDS: THERAGRAN Tab PO SCH (10:41)
[2016-08-14] MEDS: PEPCID PO SCH ×2 (10:41→10:43)
[2016-08-14] MEDS: LIORESAL PO SCH ×3 (10:42→20:25)
--- NOTE | 2016-08-14 13:54 | Progress Note ---
Assessment and Plan - Patient Problems (1) Acute exacerbation of CHF (congestive heart failure) Current Visit: Yes Status: Acute Qualifiers: Congestive heart failure type: C Plan to address problem: - continue diuresis - follow serum electrolytes - per cardiology otherwise - 2D ECHO reviewed and no significant right sided pressure elevations (2) Obesity Current Visit: Yes Status: Acute Qualifiers: Obesity type: O Obesity severity: O Plan to address problem: - weight loss counselled (3) Acute exacerbation of chronic obstructive pulmonary disease Current Visit: Yes Status: Acute Plan to address problem: - continue supplemental oxygen and keep sats > 92% - continue bronchodilators and pulmonary toilet - continue BIPAP qhs - continue empiric AB's and follow cultures - taper systemic steroids further (4) Tobacco abuse disorder Current Visit: No Status: Acute Plan to address problem: - abstinence counselled and assistance offered Subjective Date of service: 08/14/16 Principal diagnosis: Acute COPD exacerbation; Acute CHF exacerbation Interval history: Seen and examined at bedside; 24 hour events reviewed; nursing and respiratory care staff consulted; no adverse overnight events reported to me; laying peacefully in bed; feels better; denies acute chest pains or increased SOB; No N/V/F/C; tolerating BIPAP well so far Objective Vital Signs - 12hr 08/14/16 08/14/16 08/14/16 02:59 03:00 03:15 Temperature Pulse Rate 106 H Pulse Rate [ 107 H 111 H Bilateral Throughout] Pulse Rate [ From Monitor] Pulse Rate [ Right Radial] Respiratory Rate Respiratory 20 24 Rate [Bilateral Throughout] Blood Pressure Blood Pressure [Left Arm] Blood Pressure [Right Radial Artery] O2 Sat by Pulse Oximetry 08/14/16 08/14/16 08/14/16 04:00 09:30 09:40 Temperature 99.3 F Pulse Rate Pulse Rate [ 113 H 110 H Bilateral Throughout] Pulse Rate [ 107 H From Monitor] Pulse Rate [ Right Radial] Respiratory 92 H Rate Respiratory 20 20 Rate [Bilateral Throughout] Blood Pressure Blood Pressure 132/65 [Left Arm] Blood Pressure [Right Radial Artery] O2 Sat by Pulse 92 94 Oximetry 08/14/16 08/14/16 10:42 11:16 Temperature 99.1 F Pulse Rate 123 H Pulse Rate [ Bilateral Throughout] Pulse Rate [ From Monitor] Pulse Rate [ 111 H Right Radial] Respiratory 16 Rate Respiratory Rate [Bilateral Throughout] Blood Pressure 120/56 Blood Pressure [Left Arm] Blood Pressure 139/79 [Right Radial Artery] O2 Sat by Pulse 95 Oximetry Constitutional: no acute distress, alert Eyes: non-icteric ENT: oropharynx moist Neck: supple Effort: mildly labored Ascultation: Bilateral: diminished breath sounds, wheezes (faint exp in bases but much improved) Cardiovascular: regular rate and rhythm Gastrointestinal: normoactive bowel sounds, soft, non-tender, non-distended Integumentary: other (venous stasis changes) Extremities: no cyanosis, pulses normal, no ischemia or petechiae, edema, other (tender mid shins and below) Neurologic: normal mental status, non-focal exam, pupils equal and round, motor strength normal and Psychiatric: mood appropriate, affect normal CBC and BMP: 08/14/16 07:27 08/14/16 07:27 ABG, PT/INR, D-dimer: ABG POC ABG pH 7.387 (7.35-7.45) 08/13/16 14:33 POC ABG pCO2 81.4 (35-45) H 08/13/16 14:33 POC ABG pO2 76 (80-105) L 08/13/16 14:33 POC ABG HCO3 49.0 08/13/16 14:33 POC ABG Total CO2 > 50 08/13/16 14:33 POC ABG O2 Sat 94 08/13/16 14:33 PT/INR, D-dimer PT 18.6 Sec. (12.2-14.9) H 08/13/16 09:45 INR 1.56 (0.87-1.13) H 08/13/16 09:45 Abnormal lab findings: Abnormal Labs 08/13/16 08/14/16 08/14/16 14:33 05:41 07:27 MCH 27 L RDW 15.5 H Seg Neuts % (Manual) 81.0 H Lymphocytes % (Manual) 7.0 L Nucleated RBC % 1.0 H Lymphocytes # (Manual) 0.6 L POC ABG pCO2 81.4 H POC ABG pO2 76 L Sodium Chloride Carbon Dioxide Creatinine Glucose POC Glucose 160 H 08/14/16 07:27 MCH RDW Seg Neuts % (Manual) Lymphocytes % (Manual) Nucleated RBC % Lymphocytes # (Manual) POC ABG pCO2 POC ABG pO2 Sodium 146 H Chloride 91.9 L Carbon Dioxide 43 H* D Creatinine 0.5 L Glucose 180 H POC Glucose
[2016-08-14] MEDS: CULTURELLE PO SCH (14:35)
--- NOTE | 2016-08-14 15:36 | Consultation ---
History of Present Illness Consult date: 08/14/16 Requesting physician: LOREE GIRON Consult reason: elevated troponin, shortness of breath History of present illness: She presents with a one-week history of exertional dyspnea but no orthopnea. She has been coughing with production of greenish sputum. She has no chest pain. According to ER records, she was brought into the hospital in respiratory distress. Past History Past Medical History: COPD, DVT, hypertension Past Surgical History: hysterectomy, tonsillectomy Social history: denies: smoking, alcohol abuse Family history: CAD Medications and Allergies Allergies Allergy/AdvReac Type Severity Reaction Status Date / Time Sulfa (Sulfonamide Allergy Anaphylaxis Verified 03/04/13 09:17 Antibiotics) Home Medications Medication Instructions Recorded Confirmed Last Taken Type ALPRAZolam [Xanax TAB] 0.5 mg PO QID PRN 08/13/16 08/13/16 Unknown History Albuterol Sulfate [Ventolin HFA] 2 puff IH Q4H PRN 08/13/16 08/13/16 Unknown History Baclofen [Lioresal] 10 mg PO TID 08/13/16 08/13/16 Unknown History Brimonidine 0.15% [Alphagan P 100 drops OD TID 08/13/16 08/13/16 Unknown History 0.15%] Budesoni/Formoterol 80-4.5(Nf) 2 puff IH BID 08/13/16 08/13/16 Unknown History [Symbicort 80-4.5 (Nf)] Cyanocobalamin [Vitamin B-12] 1,000 mcg IM QMONTH 08/13/16 08/13/16 Unknown History Famotidine [Pepcid] 10 mg PO BID 08/13/16 08/13/16 Unknown History Fluorometholone [Fml Forte 0.25% 1 drop OP QID 08/13/16 08/13/16 Unknown History eye drops] Furosemide [Lasix TAB] 40 mg PO QDAY 08/13/16 08/13/16 Unknown History Gabapentin [Neurontin] 800 mg PO Q8H 08/13/16 08/13/16 Unknown History Lactobac Cmb #3/Fos/Pantethine 1 each PO DAILY 08/13/16 08/13/16 Unknown History [Probiotic & Acidophilus Cap] Latanoprost 0.005% [Xalatan 0.005%] 1 drop OP QPM 08/13/16 08/13/16 Unknown History Loperamide [Imodium] 2 mg PO Q2HR PRN 08/13/16 08/13/16 Unknown History Mag Hydrox/Al Hydrox/Simeth 30 ml PO TID 08/13/16 08/13/16 Unknown History [Maalox Advanced Suspension] Melatonin/Pyridoxine [Melatonin 3 2 tab PO DAILY 08/13/16 08/13/16 Unknown History mg Tablet] Multivitamin Tab [Multiple Vitamin 1 each PO QDAY 08/13/16 08/13/16 Unknown History TAB (Theragran)] Oxycodone HCl/Acetaminophen 1 each PO Q6HR PRN 08/13/16 08/13/16 Unknown History [Percocet 7.5/325 mg] Potassium Citrate [Potassium 20 meq PO DAILY 08/13/16 08/13/16 Unknown History Citrate ER] Rivaroxaban [Xarelto] 15 mg PO QHS 08/13/16 08/13/16 Unknown History Sertraline [Zoloft] 50 mg PO QDAY 08/13/16 08/13/16 Unknown History amLODIPine [Norvasc] 10 mg PO DAILY 08/13/16 08/13/16 Unknown History guaiFENesin DM [Robitussin Dm] 10 ml PO Q6HR PRN 08/13/16 08/13/16 Unknown History methOCARBAMOL [Robaxin TAB] 500 mg PO Q6H PRN 08/13/16 08/13/16 Unknown History Active Meds: Active Medications Acetaminophen (Tylenol) 650 mg PO Q4H PRN PRN Reason: Pain MILD(1-3)/Fever >100.5/MARTINEZ Al Hydrox/Mg Hydrox/Simethicone (Alum-Mag Hydrox-Simeth [id number]/5ml) 30 ml PO TID [facility] Last Admin: 08/14/16 13:42 Dose: 30 ml Albuterol (Proventil) 2.5 mg IH Q3HRT PRN PRN Reason: Shortness Of Breath Albuterol/Ipratropium (Duoneb 0.5 Mg-3 Mg/3 Ml Soln) 1 ampul IH Q6HRT [facility] Last Admin: 08/14/16 13:09 Dose: 1 ampul Alprazolam (Xanax) 0.5 mg PO QID PRN PRN Reason: Anxiety Last Admin: 08/14/16 03:03 Dose: 0.5 mg Amlodipine Besylate (Norvasc) 10 mg PO DAILY [facility] Last Admin: 08/14/16 10:42 Dose: 10 mg Arformoterol Tartrate (Brovana Nebu) 15 mcg IH Q12HRT [facility] Last Admin: 08/14/16 09:30 Dose: 15 mcg Baclofen (Lioresal) 10 mg PO TID [facility] Last Admin: 08/14/16 13:42 Dose: 10 mg Bisacodyl (Dulcolax) 10 mg NC QDAY PRN PRN Reason: Constipation unrelieved by MOM Brimonidine Tartrate (Alphagan P 0.15%) 100 drops OD TID [facility] Last Admin: 08/14/16 13:42 Dose: 100 drops Budesonide (Pulmicort) 0.5 mg IH Q12HRT [facility] Last Admin: 08/14/16 09:30 Dose: 0.5 mg Famotidine (Pepcid) 20 mg PO QDAY [facility] Last Admin: 08/14/16 10:43 Dose: 20 mg Furosemide (Lasix) 20 mg IV 0600,1800 [facility] Stop: 08/16/16 06:01 Last Admin: 08/14/16 05:28 Dose: 20 mg Gabapentin (Neurontin) 800 mg PO Q8HR [facility] Last Admin: 08/14/16 13:41 Dose: 800 mg Guaifenesin (Robitussin Dm) 10 ml PO Q6HR PRN PRN Reason: Cough Last Admin: 08/13/16 17:50 Dose: 10 ml Hydrocodone Bit/Homatropine Methylb (Hydromet) 10 ml PO Q6H PRN PRN Reason: Cough Levofloxacin/Dextrose (Levaquin 750mg/150ml) 750 mg in 150 mls @ 100 mls/hr IV Q24HR [facility] PRN Reason: Protocol Last Admin: 08/14/16 10:40 Dose: 100 mls/hr Piperacillin Sod/Tazobactam Sod (Zosyn/Ns 4.5gm/100ml) 4.5 gm in 100 mls @ 200 mls/hr IV Q6HR [facility] PRN Reason: Protocol Last Admin: 08/14/16 13:40 Dose: 200 mls/hr Lactobacillus Rhamnosus (Culturelle) 1 each PO DAILY [facility] Last Admin: 08/14/16 14:35 Dose: 1 each Latanoprost (Xalatan 0.005%) 1 drops OU QPM [facility] Last Admin: 08/13/16 21:32 Dose: 1 drops Magnesium Hydroxide (Milk Of Magnesia) 30 ml PO Q4H PRN PRN Reason: Constipation Methocarbamol (Robaxin) 500 mg PO Q6H PRN PRN Reason: Pain Last Admin: 08/14/16 03:03 Dose: 500 mg Methylprednisolone Sodium Succinate (Solu-Medrol) 60 mg IV Q8HR [facility] Last Admin: 08/14/16 13:41 Dose: 60 mg Miscellaneous Medication (Fluorometholone [Fml Forte 0.25% Eye Drops]) 1 drop OP QID [facility] Miscellaneous Medication (Melatonin/Pyridoxine [Melatonin 3 Mg Tablet]) 2 tab PO DAILY [facility] Multivitamins (Theragran Tab) 1 each PO QDAY [facility] Last Admin: 08/14/16 10:41 Dose: 1 each Nitroglycerin (Nitrostat) 0.4 mg SL .Q5MIN PRN PRN Reason: Chest Pain Ondansetron HCl (Zofran) 4 mg IV Q6H PRN PRN Reason: Nausea And Vomiting Oxycodone/Acetaminophen (Percocet 5/325) 1 tab PO Q6H PRN PRN Reason: Pain, Moderate (4-6) Rivaroxaban (Xarelto) 15 mg PO QHS [facility] PRN Reason: Protocol Last Admin: 08/13/16 21:34 Dose: 15 mg Sertraline HCl (Zoloft) 50 mg PO QDAY [facility] Last Admin: 08/14/16 10:41 Dose: 50 mg Review of Systems Constitutional: no fever, no chills Ears, nose, mouth and throat: no ear pain, no ear discharge, no sore throat Cardiovascular: shortness of breath, dyspnea on exertion, no chest pain, no palpitations, no lightheadedness Respiratory: cough with sputum, no hemoptysis Gastrointestinal: no abdominal pain, no nausea, no vomiting, no diarrhea, no constipation Genitourinary Female: no dysuria, no urinary frequency Rectal: no pain, no bleeding Musculoskeletal: no neck pain, no myalgias Integumentary: no rash, no pruritis Neurological: no parathesias, no numbness, no headaches Endocrine: no cold intolerance, no heat intolerance Hematologic/Lymphatic: no easy bruising, no easy bleeding Allergic/Immunologic: wheezing, no urticaria Physical Examination Vital Signs Last Vital Signs Temp 99.1 F 08/14/16 11:16 Pulse 111 H 08/14/16 11:16 Resp 16 08/14/16 11:16 BP 139/79 08/14/16 11:16 Pulse Ox 95 08/14/16 11:16 General appearance: no acute distress HEENT: Positive: EOMI, Normocephaly, Mucus Membranes Moist Neck: Positive: neck supple, trachea midline, Carotid Upstroke (full) Cardiac: Positive: Reg Rate and Rhythm, S1/S2 Lungs: Positive: Wheezes (bilaterally) Neuro: Positive: Grossly Intact Abdomen: Positive: Soft, Active Bowel Sounds. Negative: Tender Skin: Positive: Clear. Negative: Rash Musculoskeletal: Normal Range of Motion Extremities: Present: +1 Edema (nonpitting bilateral leg edema with erythema and chronic stasis changes in the left leg) Results 08/14/16 07:27 08/14/16 07:27 CBC 08/14/16 Range/Units 07:27 WBC 7.9 (4.5-11.0) K/mm3 RBC 4.22 (3.65-5.03) M/mm3 Hgb 11.3 (10.1-14.3) gm/dl Hct 35.3 (30.3-42.9) % Plt Count 272 (140-440) K/mm3 Comprehensive Metabolic Panel 08/14/16 Range/Units 07:27 Sodium 146 H (137-145) mmol/L Potassium 3.6 (3.6-5.0) mmol/L Chloride 91.9 L (98-107) mmol/L Carbon Dioxide 43 H* D (22-30) mmol/L BUN 10 (7-17) mg/dL Creatinine 0.5 L (0.7-1.2) mg/dL Glucose 180 H (65-100) mg/dL Calcium 8.6 (8.4-10.2) mg/dL - Imaging and Cardiology EKG: image reviewed EKG interpretations - Telemetry EKG Rhythm: Sinus Tachycardia - EKG Sinus rhythms and dysrhythmias: sinus tachycardia Assessment and Plan Due to sinus tachycardia, I will switch amlodipine to diltiazem. I will probably discontinue Lasix. - Patient Problems (1) Acute exacerbation of chronic obstructive pulmonary disease Current Visit: Yes Status: Acute (2) Sinus tachycardia Current Visit: Yes Status: Acute (3) Hypertension Current Visit: Yes Status: Chronic Qualifiers: Hypertension type: essential hypertension Qualified Code(s): I10 - Essential (primary) hypertension (4) H/O deep venous thrombosis Current Visit: No Status: Resolved
[2016-08-14] MEDS: PERCOCET 5/325 PO PRN ×2 (15:44→21:36)
[2016-08-14] MEDS: CARDIZEM PO SCH (18:23)
--- NOTE | 2016-08-14 18:27 | Progress Note ---
Assessment and Plan Assessment and plan: Acute on chronic resp failure with hypoxia and hypercarbiadue to COPD exacerbation and acute CHF. Admitted to [facility], Off BIPAP. solumedrol, Lasix, supplemental Oxygen. Cardiology and Pulm following. Acute systolic CHF. EF 40-45%. Continue Lasix, cardiology following. COPD exacerbation. solumedrol, Duoneb Hypertension. BP stable. Acute metabolic encephalopathy due to hypercarbia, much improved, now awake, alert History of DVT. On Xarelto DVT prophylaxis. On Xarelto DNR History Interval history: less shortness of breath Hospitalist Physical - Physical exam Narrative exam: Gen: appearance :Not in acute distress,morbidly obese HEENT: normocephalic, atraumatic Neck :supple no JVD Lungs: bilat basal crackles, no wheezes Heart:S1 and S2 regular, no murmurs, no gallop, no rubs Abdomen soft, non-tender, non-distended, normal bowel sounds Extremities: no edema, no clubbing, or cyanosis Neuro : Awake alert oriented 3, no focal neurological signs Psych: calm - Constitutional Vitals: Temp Pulse Resp BP Pulse Ox 99.1 F 112 H 20 132/78 94 08/14/16 11:16 08/14/16 18:23 08/14/16 13:20 08/14/16 18:23 08/14/16 17:35 General appearance: Present: no acute distress - EENT ENT: hearing intact - Neck Neck: Present: supple - Respiratory Respiratory: bilateral: diminished, rales, rhonchi, wheezing - Cardiovascular Rhythm: regular Heart Sounds: Present: S1 & S2 - Extremities Extremities: no ischemia, No edema, normal temperature, normal color - Abdominal General gastrointestinal: soft, non-tender, non-distended, normal bowel sounds - Integumentary Integumentary: Present: clear, warm, dry - Neurologic Neurologic: moves all extremities, other (Awake,alert,oriented) Results - Labs CBC & Chem 7: 08/14/16 07:27 08/16/16 07:06 Labs: Laboratory Last Values WBC 7.9 K/mm3 (4.5-11.0) 08/14/16 07:27 RBC 4.22 M/mm3 (3.65-5.03) 08/14/16 07:27 Hgb 11.3 gm/dl (10.1-14.3) 08/14/16 07:27 Hct 35.3 % (30.3-42.9) 08/14/16 07: MCV 84 fl (79-97) 08/14/16 07:27 MCH 27 pg (28-32) L 08/14/16 07:27 MCHC 32 % (30-34) 08/14/16 07: RDW 15.5 % (13.2-15.2) H 08/14/16 07:27 Plt Count 272 K/mm3 (140-440) 08/14/16 07:27 Add Manual Diff Complete 08/14/16 07:27 Total Counted 100 08/14/16 07:27 Seg Neuts % (Manual) 81.0 % (40.0-70.0) H 08/14/16 07:27 Band Neutrophils % 8.0 % 08/14/16 07:27 Lymphocytes % (Manual) 7.0 % (13.4-35.0) L 08/14/16 07:27 Reactive Lymphs % (Man) 1.0 % 08/14/16 07:27 Monocytes % (Manual) 3.0 % (0.0-7.3) 08/14/16 07:27 Eosinophils % (Manual) 0 % (0.0-4.3) 08/14/16 07:27 Basophils % (Manual) 0 % (0.0-1.8) 08/14/16 07:27 Metamyelocytes % 0 % 08/14/16 07:27 Myelocytes % 0 % 08/14/16 07:27 Promyelocytes % 0 % 08/14/16 07:27 Blast Cells % 0 % 08/14/16 07:27 Nucleated RBC % 1.0 % (0.0-0.9) H 08/14/16 07:27 Seg Neutrophils # Man 6.4 K/mm3 (1.8-7.7) 08/14/16 07:27 Band Neutrophils # 0.6 K/mm3 08/14/16 07:27 Lymphocytes # (Manual) 0.6 K/mm3 (1.2-5.4) L 08/14/16 07:27 Abs React Lymphs (Man) 0.1 K/mm3 08/14/16 07:27 Monocytes # (Manual) 0.2 K/mm3 (0.0-0.8) 08/14/16 07:27 Eosinophils # (Manual) 0.0 K/mm3 (0.0-0.4) 08/14/16 07:27 Basophils # (Manual) 0.0 K/mm3 (0.0-0.1) 08/14/16 07:27 Metamyelocytes # 0.0 K/mm3 08/14/16 07:27 Myelocytes # 0.0 K/mm3 08/14/16 07:27 Promyelocytes # 0.0 K/mm3 08/14/16 07:27 Blast Cells # 0.0 K/mm3 08/14/16 07:27 WBC Morphology Not Reportable 08/14/16 07:27 Hypersegmented Neuts Not Reportable 08/14/16 07:27 Hyposegmented Neuts Not Reportable 08/14/16 07:27 Hypogranular Neuts Not Reportable 08/14/16 07:27 Smudge Cells Not Reportable 08/14/16 07:27 Toxic Granulation Not Reportable 08/14/16 07:27 Toxic Vacuolation Not Reportable 08/14/16 07:27 Dohle Bodies Not Reportable 08/14/16 07:27 Pelger-Huet Anomaly Not Reportable 08/14/16 07:27 Ke Rods Not Reportable 08/14/16 07:27 Platelet Estimate Appears normal 08/14/16 07:27 Clumped Platelets Not Reportable 08/14/16 07:27 Plt Clumps, EDTA Not Reportable 08/14/16 07:27 Large Platelets Not Reportable 08/14/16 07:27 Giant Platelets Not Reportable 08/14/16 07:27 Platelet Satelliting Not Reportable 08/14/16 07:27 Plt Morphology Comment Not Reportable 08/14/16 07:27 RBC Morphology Not Reportable 08/14/16 07:27 Dimorphic RBCs Not Reportable 08/14/16 07:27 Polychromasia Not Reportable 08/14/16 07:27 Hypochromasia 1+ 08/14/16 07:27 Poikilocytosis Not Reportable 08/14/16 07:27 Anisocytosis Not Reportable 08/14/16 07:27 Microcytosis Not Reportable 08/14/16 07:27 Macrocytosis Not Reportable 08/14/16 07:27 Spherocytes Not Reportable 08/14/16 07:27 Pappenheimer Bodies Not Reportable 08/14/16 07:27 Sickle Cells Not Reportable 08/14/16 07:27 Target Cells Not Reportable 08/14/16 07:27 Tear Drop Cells Not Reportable 08/14/16 07:27 Ovalocytes Few 08/14/16 07:27 Stomatocytes 1+ 08/14/16 07:27 Helmet Cells Not Reportable 08/14/16 07:27 [place] Bodies Not Reportable 08/14/16 07:27 [place] Rings Not Reportable 08/14/16 07:27 [place] Cells Not Reportable 08/14/16 07:27 Bite Cells Not Reportable 08/14/16 07:27 Crenated Cell Not Reportable 08/14/16 07:27 Elliptocytes Not Reportable 08/14/16 07:27 Acanthocytes (Spur) Not Reportable 08/14/16 07:27 Rouleaux Not Reportable 08/14/16 07:27 Hemoglobin C Crystals Not Reportable 08/14/16 07:27 Schistocytes Not Reportable 08/14/16 07:27 Malaria parasites Not Reportable 08/14/16 07:27 Sanjeev Bodies Not Reportable 08/14/16 07:27 Hem Pathologist Commnt No 08/14/16 07:27 PT 18.6 Sec. (12.2-14.9) H 08/13/16 09:45 INR 1.56 (0.87-1.13) H 08/13/16 09:45 APTT 36.5 Sec. (24.2-36.6) 08/13/16 09:45 POC ABG pH 7.387 (7.35-7.45) 08/13/16 14:33 POC ABG pCO2 81.4 (35-45) H 08/13/16 14:33 POC ABG pO2 76 (80-105) L 08/13/16 14:33 POC ABG HCO3 49.0 08/13/16 14:33 POC ABG Total CO2 > 50 08/13/16 14:33 POC ABG O2 Sat 94 08/13/16 14:33 POC ABG Base Excess 24 08/13/16 14:33 FiO2 40 % 08/13/16 14:33 Sodium 146 mmol/L (137-145) H 08/14/16 07:27 Potassium 3.6 mmol/L (3.6-5.0) 08/14/16 07:27 Chloride 91.9 mmol/L (98-107) L 08/14/16 07:27 Carbon Dioxide 43 mmol/L (22-30) H* D 08/14/16 07:27 Anion Gap 15 mmol/L 08/14/16 07:27 BUN 10 mg/dL (7-17) 08/14/16 07:27 Creatinine 0.5 mg/dL (0.7-1.2) L 08/14/16 07:27 Estimated GFR > 60 ml/min 08/14/16 07:27 BUN/Creatinine Ratio 20.00 % 08/14/16 07:27 Glucose 180 mg/dL (65-100) H 08/14/16 07:27 POC Glucose 160 (70-105) H 08/14/16 05:41 Lactic Acid 1.20 mmol/L (0.7-2.0) 08/13/16 09:45 Calcium 8.6 mg/dL (8.4-10.2) 08/14/16 07:27 Magnesium 2.60 mg/dL (1.7-2.3) H 08/13/16 09:45 Total Bilirubin 0.30 mg/dL (0.1-1.2) 08/13/16 09:45 Direct Bilirubin 0.2 mg/dL (0-0.2) 08/13/16 09:45 Indirect Bilirubin 0.1 mg/dL 08/13/16 09:45 AST 12 units/L (5-40) 08/13/16 09:45 ALT 9 units/L (7-56) 08/13/16 09:45 Alkaline Phosphatase 140 units/L (35-129) H 08/13/16 09:45 Troponin T < 0.010 ng/mL (0.00-0.029) 08/13/16 09:20 C-Reactive Protein 23.70 mg/dL (0.00-1.30) H 08/13/16 09:20 NT-Pro-B Natriuret Pep 695.0 pg/mL (0-900) 08/13/16 09:45 Total Protein 6.8 g/dL (6.3-8.2) 08/13/16 09:45 Albumin 3.1 g/dL (3.9-5) L 08/13/16 09:45 Albumin/Globulin Ratio 0.8 % 08/13/16 09:45 Urine Color Yellow (Yellow) 08/13/16 10:10 Urine Turbidity Clear (Clear) 08/13/16 10:10 Urine pH 5.0 (5.0-7.0) 08/13/16 10:10 Ur Specific [place] 1.013 (1.003-1.030) 08/13/16 10:10 Urine Protein <15 mg/dl mg/dL (Negative) 08/13/16 10:10 Urine Glucose (UA) Neg mg/dL (Negative) 08/13/16 10:10 Urine Ketones 20 mg/dL (Negative) 08/13/16 10:10 Urine Blood Neg (Negative) 08/13/16 10:10 Urine Nitrite Neg (Negative) 08/13/16 10:10 Urine Bilirubin Neg (Negative) 08/13/16 10:10 Urine Urobilinogen < 2.0 mg/dL (<2.0) 08/13/16 10:10 Ur Leukocyte Esterase Neg (Negative) 08/13/16 10:10 Urine WBC (Auto) 1.0 /HPF (0.0-6.0) 08/13/16 10:10 Urine RBC (Auto) 2.0 /HPF (0.0-6.0) 08/13/16 10:10 U Epithel Cells (Auto) < 1.0 /HPF (0-13.0) 08/13/16 10:10 Urine Mucus Few /HPF 08/13/16 10:10 Blood Type O POSITIVE 08/13/16 10:07 Antibody Screen TNR 08/13/16 10:07 KARLA Antibody Screen Negative 08/13/16 10:07
[2016-08-14] MEDS: XARELTO PO SCH (21:36)
[2016-08-15] MEDS: ZOSYN/NS 4.5GM/100ML 4.5 GM/100 ML VIAL IV SCH ×4 (00:19→18:08)
[2016-08-15] MEDS: CARDIZEM PO SCH ×3 (00:20→13:15)
[2016-08-15] MEDS: DUONEB 0.5 MG-3 MG/3 ML SOLN IH SCH ×4 (02:48→21:55)
[2016-08-15] MEDS: NEURONTIN PO SCH ×3 (06:16→21:27)
[2016-08-15] MEDS: LASIX IV SCH (06:16)
[2016-08-15] MEDS: ROBAXIN PO PRN ×3 (06:30→21:27)
[2016-08-15] MEDS: PULMICORT IH SCH ×2 (07:50→21:55)
[2016-08-15] MEDS: BROVANA NEBU IH SCH ×2 (07:50→21:47)
[2016-08-15 08:55] LABS: BUN/Creatinine Ratio 26.66; Blood Urea Nitrogen 16 mg/dL (7-17); Calcium 8.9 mg/dL (8.4-10.2); Chloride 89.7 mmol/L (98-107); Glucose 169 mg/dL (65-100); Potassium 3.7 mmol/L (3.6-5.0); Sodium 143 mmol/L (137-145)
[2016-08-15 09:02] LABS: Anion Gap 16 mmol/L
[2016-08-15] MEDS: LEVAQUIN 750MG/150ML 750 MG/150 ML BAG IV SCH (09:06)
[2016-08-15] MEDS: THERAGRAN Tab PO SCH (09:08)
[2016-08-15] MEDS: LIORESAL PO SCH ×3 (09:08→20:27)
[2016-08-15] MEDS: ZOLOFT PO SCH (09:08)
[2016-08-15] MEDS: PEPCID PO SCH (09:08)
[2016-08-15] MEDS: ALPHAGAN P 0.15% OD SCH ×3 (09:08→20:28)
[2016-08-15] MEDS: ALUM-MAG HYDROX-SIMETH 200-200-20MG/5ML PO SCH ×3 (09:14→20:26)
[2016-08-15 09:22] LABS: Carbon Dioxide 41 mmol/L (22-30)
[2016-08-15] MEDS: PERCOCET 5/325 PO PRN ×2 (10:04→16:07)
[2016-08-15] MEDS: XANAX PO PRN ×2 (10:05→16:07)
--- NOTE | 2016-08-15 11:41 | Progress Note ---
Assessment and Plan - Patient Problems (1) Acute exacerbation of CHF (congestive heart failure) Current Visit: Yes Status: Acute Qualifiers: Congestive heart failure type: C (2) Obesity Current Visit: Yes Status: Acute Qualifiers: Obesity type: O Obesity severity: O (3) Acute exacerbation of chronic obstructive pulmonary disease Current Visit: Yes Status: Acute (4) Tobacco abuse disorder Current Visit: No Status: Acute Subjective Date of service: 08/15/16 Principal diagnosis: Acute COPD exacerbation; Acute CHF exacerbation Interval history: Seen and examined at bedside; 24 hour events reviewed; nursing and respiratory care staff consulted; no adverse overnight events reported to me; Objective Vital Signs - 12hr 08/15/16 08/15/16 08/15/16 00:01 00:20 01:13 Temperature 98.4 F Pulse Rate 85 78 Pulse Rate [ Bilateral Throughout] Pulse Rate [ 82 From Monitor] Pulse Rate [ Right Radial] Respiratory 30 H 20 Rate Respiratory Rate [Bilateral Throughout] Blood Pressure Blood Pressure 112/64 [Right Radial Artery] O2 Sat by Pulse 94 92 Oximetry 08/15/16 08/15/16 08/15/16 03:00 05:10 06:16 Temperature 97.7 F Pulse Rate 82 83 Pulse Rate [ Bilateral Throughout] Pulse Rate [ 83 From Monitor] Pulse Rate [ Right Radial] Respiratory 20 Rate Respiratory Rate [Bilateral Throughout] Blood Pressure 152/76 Blood Pressure 152/76 [Right Radial Artery] O2 Sat by Pulse 100 Oximetry 08/15/16 08/15/16 08/15/16 07:42 07:56 07:58 Temperature Pulse Rate Pulse Rate [ 82 82 Bilateral Throughout] Pulse Rate [ From Monitor] Pulse Rate [ Right Radial] Respiratory Rate Respiratory 18 20 Rate [Bilateral Throughout] Blood Pressure Blood Pressure [Right Radial Artery] O2 Sat by Pulse 94 Oximetry 08/15/16 08/15/16 08:15 09:55 Temperature 98.9 F 98.9 F Pulse Rate Pulse Rate [ Bilateral Throughout] Pulse Rate [ From Monitor] Pulse Rate [ 89 89 Right Radial] Respiratory 18 18 Rate Respiratory Rate [Bilateral Throughout] Blood Pressure Blood Pressure 121/59 [Right Radial Artery] O2 Sat by Pulse 92 92 Oximetry Constitutional: no acute distress, alert Eyes: non-icteric ENT: oropharynx moist Neck: supple Effort: mildly labored Ascultation: Bilateral: diminished breath sounds, wheezes (faint exp in bases but much improved) Cardiovascular: regular rate and rhythm Gastrointestinal: normoactive bowel sounds, soft, non-tender, non-distended Integumentary: other (venous stasis changes) Extremities: no cyanosis, pulses normal, no ischemia or petechiae, edema, other (tender mid shins and below) Neurologic: normal mental status, non-focal exam, pupils equal and round, motor strength normal and Psychiatric: mood appropriate, affect normal CBC and BMP: 08/14/16 07:27 08/15/16 07:30 ABG, PT/INR, D-dimer: ABG POC ABG pH 7.387 (7.35-7.45) 08/13/16 14:33 POC ABG pCO2 81.4 (35-45) H 08/13/16 14:33 POC ABG pO2 76 (80-105) L 08/13/16 14:33 POC ABG HCO3 49.0 08/13/16 14:33 POC ABG Total CO2 > 50 08/13/16 14:33 POC ABG O2 Sat 94 08/13/16 14:33 PT/INR, D-dimer PT 18.6 Sec. (12.2-14.9) H 08/13/16 09:45 INR 1.56 (0.87-1.13) H 08/13/16 09:45 Abnormal lab findings: Abnormal Labs 08/13/16 08/14/16 08/14/16 14:33 05:41 07:27 MCH 27 L RDW 15.5 H Seg Neuts % (Manual) 81.0 H Lymphocytes % (Manual) 7.0 L Nucleated RBC % 1.0 H Lymphocytes # (Manual) 0.6 L POC ABG pCO2 81.4 H POC ABG pO2 76 L Sodium Chloride Carbon Dioxide Creatinine Glucose POC Glucose 160 H 08/14/16 08/14/16 08/14/16 07:27 12:43 17:53 MCH RDW Seg Neuts % (Manual) Lymphocytes % (Manual) Nucleated RBC % Lymphocytes # (Manual) POC ABG pCO2 POC ABG pO2 Sodium 146 H Chloride 91.9 L Carbon Dioxide 43 H* D Creatinine 0.5 L Glucose 180 H POC Glucose 188 H 277 H 08/15/16 08/15/16 08/15/16 01:28 07:08 07:30 MCH RDW Seg Neuts % (Manual) Lymphocytes % (Manual) Nucleated RBC % Lymphocytes # (Manual) POC ABG pCO2 POC ABG pO2 Sodium Chloride 89.7 L Carbon Dioxide 41 H* Creatinine 0.6 L Glucose 169 H POC Glucose 169 H 178 H
--- NOTE | 2016-08-15 12:41 | Progress Note ---
Assessment and Plan Discontinue Lasix. Stable cardiac status. - Patient Problems (1) Acute exacerbation of chronic obstructive pulmonary disease Current Visit: Yes Status: Acute (2) Sinus tachycardia Current Visit: Yes Status: Resolved (3) Left ventricular systolic dysfunction Current Visit: Yes Status: Chronic (4) Hypertension Current Visit: Yes Status: Chronic Qualifiers: Hypertension type: essential hypertension Qualified Code(s): I10 - Essential (primary) hypertension (5) H/O deep venous thrombosis Current Visit: No Status: Resolved Subjective Principal diagnosis: COPD exacerbation, HTN, h/o DVT Interval history: She feels better today. In normal sinus rhythm. Objective Vital Signs Last Vital Signs Temp 98.9 F 08/15/16 09:55 Pulse 89 08/15/16 09:55 Resp 18 08/15/16 09:55 BP 121/59 08/15/16 09:55 Pulse Ox 92 08/15/16 09:55 - Physical Examination General: No Apparent Distress HEENT: Positive: EOMI, Normocephaly, Mucus Membranes Moist Neck: Positive: neck supple, trachea midline, Carotid Upstroke (full) Cardiac: Positive: Reg Rate and Rhythm, S1/S2 Lungs: Positive: Wheezes (a few wheezes bilaterally) Neuro: Positive: Grossly Intact Abdomen: Positive: Soft, Active Bowel Sounds. Negative: Tender Skin: Positive: Clear. Negative: Rash Musculoskeletal: Normal Range of Motion Extremities: Present: +1 Edema (nonpitting bilateral leg edema with erythema and chronic stasis changes in the left leg) - Labs and Meds Comprehensive Metabolic Panel 08/15/16 Range/Units 07:30 Sodium 143 (137-145) mmol/L Potassium 3.7 (3.6-5.0) mmol/L Chloride 89.7 L (98-107) mmol/L Carbon Dioxide 41 H* (22-30) mmol/L BUN 16 (7-17) mg/dL Creatinine 0.6 L (0.7-1.2) mg/dL Glucose 169 H (65-100) mg/dL Calcium 8.9 (8.4-10.2) mg/dL - Imaging and Cardiology EKG: image reviewed - Telemetry EKG Rhythm: Sinus Rhythm
[2016-08-15 15:23] LABS: ISTAT Base Excess 22; ISTAT HCO3 44.7; ISTAT PCO2 53.9 (35-45); ISTAT PH 7.526 (7.35-7.45); ISTAT PO2 60 (80-105); ISTAT SO2 93; ISTAT TCO2 46
[2016-08-15 15:23] LABS: ISTAT Base Excess 24; ISTAT HCO3 47.6; ISTAT PCO2 68.9 (35-45); ISTAT PH 7.447 (7.35-7.45); ISTAT PO2 29 (80-105); ISTAT SITE 1; ISTAT SO2 55; ISTAT TCO2 50
[2016-08-15] MEDS: XARELTO PO SCH (21:26)
[2016-08-16] MEDS: CARDIZEM PO SCH ×4 (00:30→18:00)
[2016-08-16] MEDS: ZOSYN/NS 4.5GM/100ML 4.5 GM/100 ML VIAL IV SCH ×5 (01:00→20:52)
[2016-08-16] MEDS: XANAX PO PRN ×4 (01:44→21:37)
[2016-08-16] MEDS: PERCOCET 5/325 PO PRN ×3 (01:44→21:37)
[2016-08-16] MEDS: DUONEB 0.5 MG-3 MG/3 ML SOLN IH SCH ×4 (02:27→21:17)
[2016-08-16] MEDS: NEURONTIN PO SCH ×3 (06:05→21:37)
[2016-08-16] MEDS: ALPHAGAN P 0.15% OD SCH ×3 (08:00→21:52)
[2016-08-16] MEDS: PULMICORT IH SCH ×2 (08:35→20:02)
[2016-08-16] MEDS: BROVANA NEBU IH SCH ×3 (08:35→20:02)
[2016-08-16] MEDS: LIORESAL PO SCH ×3 (09:00→21:38)
[2016-08-16 10:11] LABS: Anion Gap 20 mmol/L; Blood Urea Nitrogen 21 mg/dL (7-17); Calcium 9.1 mg/dL (8.4-10.2); Carbon Dioxide 38 mmol/L (22-30); Chloride 89.1 mmol/L (98-107); Glucose 125 mg/dL (65-100); Potassium 3.8 mmol/L (3.6-5.0); Sodium 143 mmol/L (137-145)
[2016-08-16] MEDS: ROBAXIN PO PRN ×2 (10:19→23:55)
[2016-08-16] MEDS: PEPCID PO SCH (10:20)
[2016-08-16] MEDS: THERAGRAN Tab PO SCH (10:20)
[2016-08-16] MEDS: LEVAQUIN 750MG/150ML 750 MG/150 ML BAG IV SCH (10:20)
[2016-08-16] MEDS: ZOLOFT PO SCH (10:20)
--- NOTE | 2016-08-16 10:48 | Progress Note ---
Assessment and Plan Assessment and plan: Acute on chronic resp failure with hypoxia and hypercarbia due to COPD exacerbation and acute CHF. Admit to Tele, BIPAP, solumedrol, Lasix, supplemental Oxygen. Cardiology and Pulm consult Acute systolic CHF. new diagnosis. EF 40-45%. Lasix, cardiology COPD exacerbation. Continue solumedrol, Duoneb Hypertension Acute metabolic encephalopathy due to hypercarbia, now resolved History of DVT. On Xarelto DVT prophylaxis. On Xarelto DNR History Interval history: less shortness of breath, no chest pain Hospitalist Physical - Physical exam Narrative exam: Gen: appearance :Not in acute distress,morbidly obese HEENT: normocephalic, atraumatic Neck :supple no JVD Lungs: bilat basal crackles, decreased breath sounds Heart:S1 and S2 regular, no murmurs, no gallop, no rubs Abdomen soft, non-tender, non-distended, normal bowel sounds Extremities: no edema, no clubbing, or cyanosis Neuro : Awake alert oriented 3, no focal neurological signs Psych: calm - Constitutional Vitals: Temp Pulse Resp BP Pulse Ox 98.8 F 88 16 115/60 98 08/16/16 10:32 08/16/16 10:32 08/16/16 10:32 08/16/16 10:32 08/16/16 10:32 General appearance: Present: no acute distress Results - Labs CBC & Chem 7: 08/14/16 07:27 08/16/16 07:06 Labs: Laboratory Last Values WBC 7.9 K/mm3 (4.5-11.0) 08/14/16 07:27 RBC 4.22 M/mm3 (3.65-5.03) 08/14/16 07:27 Hgb 11.3 gm/dl (10.1-14.3) 08/14/16 07:27 Hct 35.3 % (30.3-42.9) 08/14/16 07:27 MCV 84 fl (79-97) 08/14/16 07:27 MCH 27 pg (28-32) L 08/14/16 07:27 MCHC 32 % (30-34) 08/14/16 07:27 RDW 15.5 % (13.2-15.2) H 08/14/16 07:27 Plt Count 272 K/mm3 (140-440) 08/14/16 07:27 Add Manual Diff Complete 08/14/16 07:27 Total Counted 100 08/14/16 07:27 Seg Neuts % (Manual) 81.0 % (40.0-70.0) H 08/14/16 07:27 Band Neutrophils % 8.0 % 08/14/16 07:27 Lymphocytes % (Manual) 7.0 % (13.4-35.0) L 08/14/16 07:27 Reactive Lymphs % (Man) 1.0 % 08/14/16 07:27 Monocytes % (Manual) 3.0 % (0.0-7.3) 08/14/16 07:27 Eosinophils % (Manual) 0 % (0.0-4.3) 08/14/16 07:27 Basophils % (Manual) 0 % (0.0-1.8) 08/14/16 07:27 Metamyelocytes % 0 % 08/14/16 07:27 Myelocytes % 0 % 08/14/16 07:27 Promyelocytes % 0 % 08/14/16 07:27 Blast Cells % 0 % 08/14/16 07:27 Nucleated RBC % 1.0 % (0.0-0.9) H 08/14/16 07:27 Seg Neutrophils # Man 6.4 K/mm3 (1.8-7.7) 08/14/16 07:27 Band Neutrophils # 0.6 K/mm3 08/14/16 07:27 Lymphocytes # (Manual) 0.6 K/mm3 (1.2-5.4) L 08/14/16 07:27 Abs React Lymphs (Man) 0.1 K/mm3 08/14/16 07:27 Monocytes # (Manual) 0.2 K/mm3 (0.0-0.8) 08/14/16 07:27 Eosinophils # (Manual) 0.0 K/mm3 (0.0-0.4) 08/14/16 07:27 Basophils # (Manual) 0.0 K/mm3 (0.0-0.1) 08/14/16 07:27 Metamyelocytes # 0.0 K/mm3 08/14/16 07:27 Myelocytes # 0.0 K/mm3 08/14/16 07:27 Promyelocytes # 0.0 K/mm3 08/14/16 07:27 Blast Cells # 0.0 K/mm3 08/14/16 07:27 WBC Morphology Not Reportable 08/14/16 07:27 Hypersegmented Neuts Not Reportable 08/14/16 07:27 Hyposegmented Neuts Not Reportable 08/14/16 07:27 Hypogranular Neuts Not Reportable 08/14/16 07:27 Smudge Cells Not Reportable 08/14/16 07:27 Toxic Granulation Not Reportable 08/14/16 07:27 Toxic Vacuolation Not Reportable 08/14/16 07:27 Dohle Bodies Not Reportable 08/14/16 07:27 Pelger-[place]uet Anomaly Not Reportable 08/14/16 07:27 Ke Rods Not Reportable 08/14/16 07:27 Platelet Estimate Appears normal 08/14/16 07:27 Clumped Platelets Not Reportable 08/14/16 07:27 Plt Clumps, EDTA Not Reportable 08/14/16 07:27 Large Platelets Not Reportable 08/14/16 07:27 Giant Platelets Not Reportable 08/14/16 07:27 Platelet Satelliting Not Reportable 08/14/16 07:27 Plt Morphology Comment Not Reportable 08/14/16 07:27 RBC Morphology Not Reportable 08/14/16 07:27 Dimorphic RBCs Not Reportable 08/14/16 07:27 Polychromasia Not Reportable 08/14/16 07:27 Hypochromasia 1+ 08/14/16 07:27 Poikilocytosis Not Reportable 08/14/16 07:27 Anisocytosis Not Reportable 08/14/16 07:27 Microcytosis Not Reportable 08/14/16 07:27 Macrocytosis Not Reportable 08/14/16 07:27 Spherocytes Not Reportable 08/14/16 07:27 Pappenheimer Bodies Not Reportable 08/14/16 07:27 Sickle Cells Not Reportable 08/14/16 07:27 Target Cells Not Reportable 08/14/16 07:27 Tear Drop Cells Not Reportable 08/14/16 07:27 Ovalocytes Few 08/14/16 07:27 Stomatocytes 1+ 08/14/16 07:27 Helmet Cells Not Reportable 08/14/16 07:27 [place] Bodies Not Reportable 08/14/16 07:27 [place] Rings Not Reportable 08/14/16 07:27 [place] Cells Not Reportable 08/14/16 07:27 Bite Cells Not Reportable 08/14/16 07:27 Crenated Cell Not Reportable 08/14/16 07:27 Elliptocytes Not Reportable 08/14/16 07:27 Acanthocytes (Spur) Not Reportable 08/14/16 07:27 Rouleaux Not Reportable 08/14/16 07:27 Hemoglobin C Crystals Not Reportable 08/14/16 07:27 Schistocytes Not Reportable 08/14/16 07:27 Malaria parasites Not Reportable 08/14/16 07:27 Sanjeev Bodies Not Reportable 08/14/16 07:27 Hem Pathologist Commnt No 08/14/16 07:27 PT 18.6 Sec. (12.2-14.9) H 08/13/16 09:45 INR 1.56 (0.87-1.13) H 08/13/16 09:45 APTT 36.5 Sec. (24.2-36.6) 08/13/16 09:45 POC ABG pH 7.526 (7.35-7.45) H 08/15/16 14:35 POC ABG pCO2 53.9 (35-45) H 08/15/16 14:35 POC ABG pO2 60 (80-105) L 08/15/16 14:35 POC ABG HCO3 44.7 08/15/16 14:35 POC ABG Total CO2 46 08/15/16 14:35 POC ABG O2 Sat 93 08/15/16 14:35 POC ABG Base Excess 22 08/15/16 14:35 FiO2 4 % 08/15/16 14:35 Sodium 143 mmol/L (137-145) 08/16/16 07:06 Potassium 3.8 mmol/L (3.6-5.0) 08/16/16 07:06 Chloride 89.1 mmol/L (98-107) L 08/16/16 07:06 Carbon Dioxide 38 mmol/L (22-30) H 08/16/16 07:06 Anion Gap 20 mmol/L 08/16/16 07:06 BUN 21 mg/dL (7-17) H 08/16/16 07:06 Creatinine 0.6 mg/dL (0.7-1.2) L 08/16/16 07:06 Estimated GFR > 60 ml/min 08/16/16 07:06 BUN/Creatinine Ratio 35.00 % 08/16/16 07:06 Glucose 125 mg/dL (65-100) H 08/16/16 07:06 POC Glucose 262 (70-105) H 08/15/16 18:12 Lactic Acid 1.20 mmol/L (0.7-2.0) 08/13/16 09:45 Calcium 9.1 mg/dL (8.4-10.2) 08/16/16 07:06 Magnesium 2.60 mg/dL (1.7-2.3) H 08/13/16 09:45 Total Bilirubin 0.30 mg/dL (0.1-1.2) 08/13/16 09:45 Direct Bilirubin 0.2 mg/dL (0-0.2) 08/13/16 09:45 Indirect Bilirubin 0.1 mg/dL 08/13/16 09:45 AST 12 units/L (5-40) 08/13/16 09:45 ALT 9 units/L (7-56) 08/13/16 09:45 Alkaline Phosphatase 140 units/L (35-129) H 08/13/16 09:45 Troponin T < 0.010 ng/mL (0.00-0.029) 08/13/16 09:20 C-Reactive Protein 23.70 mg/dL (0.00-1.30) H 08/13/16 09:20 NT-Pro-B Natriuret Pep 695.0 pg/mL (0-900) 08/13/16 09:45 Total Protein 6.8 g/dL (6.3-8.2) 08/13/16 09:45 Albumin 3.1 g/dL (3.9-5) L 08/13/16 09:45 Albumin/Globulin Ratio 0.8 % 08/13/16 09:45 Urine Color Yellow (Yellow) 08/13/16 10:10 Urine Turbidity Clear (Clear) 08/13/16 10:10 Urine pH 5.0 (5.0-7.0) 08/13/16 10:10 Ur Specific [place] 1.013 (1.003-1.030) 08/13/16 10:10 Urine Protein <15 mg/dl mg/dL (Negative) 08/13/16 10:10 Urine Glucose (UA) Neg mg/dL (Negative) 08/13/16 10:10 Urine Ketones 20 mg/dL (Negative) 08/13/16 10:10 Urine Blood Neg (Negative) 08/13/16 10:10 Urine Nitrite Neg (Negative) 08/13/16 10:10 Urine Bilirubin Neg (Negative) 08/13/16 10:10 Urine Urobilinogen < 2.0 mg/dL (<2.0) 08/13/16 10:10 Ur Leukocyte Esterase Neg (Negative) 08/13/16 10:10 Urine WBC (Auto) 1.0 /HPF (0.0-6.0) 08/13/16 10:10 Urine RBC (Auto) 2.0 /HPF (0.0-6.0) 08/13/16 10:10 U Epithel Cells (Auto) < 1.0 /HPF (0-13.0) 08/13/16 10:10 Urine Mucus Few /HPF 08/13/16 10:10 Blood Type O POSITIVE 08/13/16 10:07 Antibody Screen TNR 08/13/16 10:07 KARLA Antibody Screen Negative 08/13/16 10:07
--- NOTE | 2016-08-16 14:21 | Progress Note ---
Assessment and Plan Currently stable cardiac status. Initiate low dose ACEI in setting of CMP. No BB at this time in setting of COPD with acute exacerbation. Will see PRN. Pt may discharge home from cardiology standpoint. Recommend follow up in our office with Michelle Jackson NP, within 1-2 weeks of hospital discharge. The patient has been seen in conjunction with Dr. HOWARD Victor who agrees with the assessment and plan of care. - Patient Problems (1) Acute exacerbation of chronic obstructive pulmonary disease Current Visit: Yes Status: Acute (2) Sinus tachycardia Current Visit: Yes Status: Resolved (3) Left ventricular systolic dysfunction Current Visit: Yes Status: Chronic (4) Hypertension Current Visit: Yes Status: Chronic Qualifiers: Hypertension type: essential hypertension Qualified Code(s): I10 - Essential (primary) hypertension (5) H/O deep venous thrombosis Current Visit: No Status: Resolved Subjective Date of service: 08/16/16 Principal diagnosis: COPD exacerbation, HTN, h/o DVT Interval history: Pt denies any cardiac complaints. Wheezing noted. VSS. Objective Last Vital Signs Temp 98.8 F 08/16/16 10:32 Pulse 77 08/16/16 13:38 Resp 17 08/16/16 13:38 BP 115/60 08/16/16 10:32 Pulse Ox 98 08/16/16 10:32 - Physical Examination General: No Apparent Distress HEENT: Positive: EOMI, Normocephaly, Mucus Membranes Moist Neck: Positive: neck supple, trachea midline, Carotid Upstroke (full) Cardiac: Positive: Reg Rate and Rhythm Lungs: Positive: Wheezes, Oxygen Neuro: Positive: Grossly Intact Abdomen: Positive: Soft, Active Bowel Sounds. Negative: Tender Skin: Positive: Clear. Negative: Rash Musculoskeletal: Normal Range of Motion Extremities: Present: +1 Edema (nonpitting bilateral leg edema with erythema and chronic stasis changes in the left leg) - Labs and Meds Comprehensive Metabolic Panel 08/16/16 Range/Units 07:06 Sodium 143 (137-145) mmol/L Potassium 3.8 (3.6-5.0) mmol/L Chloride 89.1 L (98-107) mmol/L Carbon Dioxide 38 H (22-30) mmol/L BUN 21 H (7-17) mg/dL Creatinine 0.6 L (0.7-1.2) mg/dL Glucose 125 H (65-100) mg/dL Calcium 9.1 (8.4-10.2) mg/dL - Imaging and Cardiology EKG: image reviewed - Telemetry EKG Rhythm: Sinus Rhythm - EKG Sinus rhythms and dysrhythmias: sinus tachycardia
[2016-08-16] MEDS: ALUM-MAG HYDROX-SIMETH 200-200-20MG/5ML PO SCH ×3 (14:26→21:55)
[2016-08-16] MEDS: HYDROMET PO PRN (14:27)
[2016-08-16] MEDS: CULTURELLE PO SCH ×2 (14:42→14:45)
--- NOTE | 2016-08-16 15:56 | Progress Note ---
Assessment and Plan Assessment and plan: Acute on chronic resp failure with hypoxia and hypercarbia due to COPD exacerbation and acute CHF. Off BIPAP,on solumedrol, Lasix, supplemental Oxygen. Cardiology and Pulm consult Acute systolic CHF. new diagnosis. EF 40-45%. Lasix, cardiology. Will follow with cardiology as outpatient COPD exacerbation. Continue solumedrol, Duoneb Hypertension, BP stable Acute metabolic encephalopathy due to hypercarbia, now resolved History of DVT. On Xarelto DVT prophylaxis. On Xarelto DNR Dispo:likely d/c back to SNF tomorrow. History Interval history: feels better, less shortness of breath, no chest pain Hospitalist Physical - Physical exam Narrative exam: Gen: appearance :Not in acute distress,morbidly obese HEENT: normocephalic, atraumatic Neck :supple no JVD Lungs: bilat basal crackles, decreased breath sounds Heart:S1 and S2 regular, no murmurs, no gallop, no rubs Abdomen soft, non-tender, non-distended, normal bowel sounds Extremities: no edema, no clubbing, or cyanosis Neuro : Awake alert oriented 3, no focal neurological signs Psych: calm - Constitutional Vitals: Temp Pulse Resp BP Pulse Ox 98.8 F 77 17 115/60 98 08/16/16 10:32 08/16/16 13:38 08/16/16 13:38 08/16/16 10:32 08/16/16 10:32 General appearance: Present: no acute distress Results - Labs CBC & Chem 7: 08/14/16 07:27 08/16/16 07:06 Labs: Laboratory Last Values WBC 7.9 K/mm3 (4.5-11.0) 08/14/16 07:27 RBC 4.22 M/mm3 (3.65-5.03) 08/14/16 07:27 Hgb 11.3 gm/dl (10.1-14.3) 08/14/16 07:27 Hct 35.3 % (30.3-42.9) 08/14/16 07:27 MCV 84 fl (79-97) 08/14/16 07:27 MCH 27 pg (28-32) L 08/14/16 07:27 MCHC 32 % (30-34) 08/14/16 07:27 RDW 15.5 % (13.2-15.2) H 08/14/16 07:27 Plt Count 272 K/mm3 (140-440) 08/14/16 07:27 Add Manual Diff Complete 08/14/16 07:27 Total Counted 100 08/14/16 07:27 Seg Neuts % (Manual) 81.0 % (40.0-70.0) H 08/14/16 07:27 Band Neutrophils % 8.0 % 08/14/16 07:27 Lymphocytes % (Manual) 7.0 % (13.4-35.0) L 08/14/16 07:27 Reactive Lymphs % (Man) 1.0 % 08/14/16 07:27 Monocytes % (Manual) 3.0 % (0.0-7.3) 08/14/16 07:27 Eosinophils % (Manual) 0 % (0.0-4.3) 08/14/16 07:27 Basophils % (Manual) 0 % (0.0-1.8) 08/14/16 07:27 Metamyelocytes % 0 % 08/14/16 07:27 Myelocytes % 0 % 08/14/16 07:27 Promyelocytes % 0 % 08/14/16 07:27 Blast Cells % 0 % 08/14/16 07:27 Nucleated RBC % 1.0 % (0.0-0.9) H 08/14/16 07:27 Seg Neutrophils # Man 6.4 K/mm3 (1.8-7.7) 08/14/16 07:27 Band Neutrophils # 0.6 K/mm3 08/14/16 07:27 Lymphocytes # (Manual) 0.6 K/mm3 (1.2-5.4) L 08/14/16 07:27 Abs React Lymphs (Man) 0.1 K/mm3 08/14/16 07:27 Monocytes # (Manual) 0.2 K/mm3 (0.0-0.8) 08/14/16 07:27 Eosinophils # (Manual) 0.0 K/mm3 (0.0-0.4) 08/14/16 07:27 Basophils # (Manual) 0.0 K/mm3 (0.0-0.1) 08/14/16 07:27 Metamyelocytes # 0.0 K/mm3 08/14/16 07:27 Myelocytes # 0.0 K/mm3 08/14/16 07:27 Promyelocytes # 0.0 K/mm3 08/14/16 07:27 Blast Cells # 0.0 K/mm3 08/14/16 07:27 WBC Morphology Not Reportable 08/14/16 07:27 Hypersegmented Neuts Not Reportable 08/14/16 07:27 Hyposegmented Neuts Not Reportable 08/14/16 07:27 Hypogranular Neuts Not Reportable 08/14/16 07:27 Smudge Cells Not Reportable 08/14/16 07:27 Toxic Granulation Not Reportable 08/14/16 07:27 Toxic Vacuolation Not Reportable 08/14/16 07:27 Dohle Bodies Not Reportable 08/14/16 07:27 Pelger-Huet Anomaly Not Reportable 08/14/16 07:27 Ke Rods Not Reportable 08/14/16 07:27 Platelet Estimate Appears normal 08/14/16 07:27 Clumped Platelets Not Reportable 08/14/16 07:27 Plt Clumps, EDTA Not Reportable 08/14/16 07:27 Large Platelets Not Reportable 08/14/16 07:27 Giant Platelets Not Reportable 08/14/16 07:27 Platelet Satelliting Not Reportable 08/14/16 07:27 Plt Morphology Comment Not Reportable 08/14/16 07:27 RBC Morphology Not Reportable 08/14/16 07:27 Dimorphic RBCs Not Reportable 08/14/16 07:27 Polychromasia Not Reportable 08/14/16 07:27 Hypochromasia 1+ 08/14/16 07:27 Poikilocytosis Not Reportable 08/14/16 07:27 Anisocytosis Not Reportable 08/14/16 07:27 Microcytosis Not Reportable 08/14/16 07:27 Macrocytosis Not Reportable 08/14/16 07:27 Spherocytes Not Reportable 08/14/16 07:27 Pappenheimer Bodies Not Reportable 08/14/16 07:27 Sickle Cells Not Reportable 08/14/16 07:27 Target Cells Not Reportable 08/14/16 07:27 Tear Drop Cells Not Reportable 08/14/16 07:27 Ovalocytes Few 08/14/16 07:27 Stomatocytes 1+ 08/14/16 07:27 Helmet Cells Not Reportable 08/14/16 07:27 [place] Bodies Not Reportable 08/14/16 07:27 [place] Rings Not Reportable 08/14/16 07:27 [place] Cells Not Reportable 08/14/16 07:27 Bite Cells Not Reportable 08/14/16 07:27 Crenated Cell Not Reportable 08/14/16 07:27 Elliptocytes Not Reportable 08/14/16 07:27 Acanthocytes (Spur) Not Reportable 08/14/16 07:27 Rouleaux Not Reportable 08/14/16 07:27 Hemoglobin C Crystals Not Reportable 08/14/16 07:27 Schistocytes Not Reportable 08/14/16 07:27 Malaria parasites Not Reportable 08/14/16 07:27 Sanjeev Bodies Not Reportable 08/14/16 07:27 Hem Pathologist Commnt No 08/14/16 07:27 PT 18.6 Sec. (12.2-14.9) H 08/13/16 09:45 INR 1.56 (0.87-1.13) H 08/13/16 09:45 APTT 36.5 Sec. (24.2-36.6) 08/13/16 09:45 POC ABG pH 7.526 (7.35-7.45) H 08/15/16 14:35 POC ABG pCO2 53.9 (35-45) H 08/15/16 14:35 POC ABG pO2 60 (80-105) L 08/15/16 14:35 POC ABG HCO3 44.7 08/15/16 14:35 POC ABG Total CO2 46 08/15/16 14:35 POC ABG O2 Sat 93 08/15/16 14:35 POC ABG Base Excess 22 08/15/16 14:35 FiO2 4 % 08/15/16 14:35 Sodium 143 mmol/L (137-145) 08/16/16 07:06 Potassium 3.8 mmol/L (3.6-5.0) 08/16/16 07:06 Chloride 89.1 mmol/L (98-107) L 08/16/16 07:06 Carbon Dioxide 38 mmol/L (22-30) H 08/16/16 07:06 Anion Gap 20 mmol/L 08/16/16 07:06 BUN 21 mg/dL (7-17) H 08/16/16 07:06 Creatinine 0.6 mg/dL (0.7-1.2) L 08/16/16 07:06 Estimated GFR > 60 ml/min 08/16/16 07:06 BUN/Creatinine Ratio 35.00 % 08/16/16 07:06 Glucose 125 mg/dL (65-100) H 08/16/16 07:06 POC Glucose 262 (70-105) H 08/15/16 18:12 Lactic Acid 1.20 mmol/L (0.7-2.0) 08/13/16 09:45 Calcium 9.1 mg/dL (8.4-10.2) 08/16/16 07:06 Magnesium 2.60 mg/dL (1.7-2.3) H 08/13/16 09:45 Total Bilirubin 0.30 mg/dL (0.1-1.2) 08/13/16 09:45 Direct Bilirubin 0.2 mg/dL (0-0.2) 08/13/16 09:45 Indirect Bilirubin 0.1 mg/dL 08/13/16 09:45 AST 12 units/L (5-40) 08/13/16 09:45 ALT 9 units/L (7-56) 08/13/16 09:45 Alkaline Phosphatase 140 units/L (35-129) H 08/13/16 09:45 Troponin T < 0.010 ng/mL (0.00-0.029) 08/13/16 09:20 C-Reactive Protein 23.70 mg/dL (0.00-1.30) H 08/13/16 09:20 NT-Pro-B Natriuret Pep 695.0 pg/mL (0-900) 08/13/16 09:45 Total Protein 6.8 g/dL (6.3-8.2) 08/13/16 09:45 Albumin 3.1 g/dL (3.9-5) L 08/13/16 09:45 Albumin/Globulin Ratio 0.8 % 08/13/16 09:45 Urine Color Yellow (Yellow) 08/13/16 10:10 Urine Turbidity Clear (Clear) 08/13/16 10:10 Urine pH 5.0 (5.0-7.0) 08/13/16 10:10 Ur Specific [place] 1.013 (1.003-1.030) 08/13/16 10:10 Urine Protein <15 mg/dl mg/dL (Negative) 08/13/16 10:10 Urine Glucose (UA) Neg mg/dL (Negative) 08/13/16 10:10 Urine Ketones 20 mg/dL (Negative) 08/13/16 10:10 Urine Blood Neg (Negative) 08/13/16 10:10 Urine Nitrite Neg (Negative) 08/13/16 10:10 Urine Bilirubin Neg (Negative) 08/13/16 10:10 Urine Urobilinogen < 2.0 mg/dL (<2.0) 08/13/16 10:10 Ur Leukocyte Esterase Neg (Negative) 08/13/16 10:10 Urine WBC (Auto) 1.0 /HPF (0.0-6.0) 08/13/16 10:10 Urine RBC (Auto) 2.0 /HPF (0.0-6.0) 08/13/16 10:10 U Epithel Cells (Auto) < 1.0 /HPF (0-13.0) 08/13/16 10:10 Urine Mucus Few /HPF 08/13/16 10:10 Blood Type O POSITIVE 08/13/16 10:07 Antibody Screen TNR 08/13/16 10:07 KARLA Antibody Screen Negative 08/13/16 10:07
[2016-08-16] MEDS: ROBITUSSIN DM PO PRN (16:38)
[2016-08-16] MEDS: XALATAN 0.005% OU SCH (18:00)
--- NOTE | 2016-08-16 19:19 | Progress Note ---
Assessment and Plan Patient alert, awake and resting on nasal canula 3 litres and O2 saturation 96% . Patient going on BIPAP during night time. - Patient Problems (1) Acute exacerbation of chronic obstructive pulmonary disease Current Visit: Yes Status: Acute Plan to address problem: O2 3 litres via nasal canula. Albuterol/atrovent aerosol treatments q 6 hours. Continue I/V solumedral Continue xaralto Continue famotadine. Continue Levaquine. (2) Acute exacerbation of CHF (congestive heart failure) Current Visit: Yes Status: Acute Qualifiers: Congestive heart failure type: C Plan to address problem: Management as per primary and cardiology. (3) Hypercapnic respiratory failure Current Visit: Yes Status: Acute Qualifiers: Chronicity: acute on chronic Qualified Code(s): J96.22 - Acute and chronic respiratory failure with hypercapnia Plan to address problem: BIPAP during night time. O2 3 litres via nasal canula. Albuterol/atrovent aerosol treatments q 6 hours. Continue I/V solumedral Continue xaralto Continue famotadine. (4) Obesity Current Visit: Yes Status: Acute Qualifiers: Obesity type: O Obesity severity: O Plan to address problem: Weight reduction diet. (5) Hypertension Current Visit: Yes Status: Chronic Qualifiers: Hypertension type: essential hypertension Qualified Code(s): I10 - Essential (primary) hypertension Plan to address problem: Management as per primary care. Subjective Date of service: 08/16/16 Principal diagnosis: COPD exacerbation, HTN, h/o DVT Interval history: Patient alert, awake and resting on nasal canula 3 litres and O2 saturation 96% . Patient going on BIPAP during night time. Objective Vital Signs - 12hr 08/16/16 08/16/16 08/16/16 08:36 08:37 08:38 Temperature Pulse Rate [ 74 76 Bilateral Throughout] Pulse Rate [ Right Radial] Respiratory Rate Respiratory 19 18 Rate [Bilateral Throughout] Blood Pressure [Right Radial Artery] O2 Sat by Pulse 96 Oximetry 08/16/16 08/16/16 08/16/16 10:32 13:38 19:05 Temperature 98.8 F Pulse Rate [ 77 Bilateral Throughout] Pulse Rate [ 88 Right Radial] Respiratory 16 Rate Respiratory 17 Rate [Bilateral Throughout] Blood Pressure 115/60 115/60 [Right Radial Artery] O2 Sat by Pulse 98 Oximetry Constitutional: no acute distress, alert Eyes: non-icteric ENT: oropharynx moist Neck: supple Effort: mildly labored Ascultation: Bilateral: diminished breath sounds, wheezes (faint exp in bases but much improved) Cardiovascular: regular rate and rhythm Gastrointestinal: normoactive bowel sounds, soft, non-tender, non-distended Integumentary: other (venous stasis changes) Extremities: no cyanosis, pulses normal, no ischemia or petechiae, edema, other (tender mid shins and below) Neurologic: normal mental status, non-focal exam, pupils equal and round, motor strength normal and Psychiatric: mood appropriate, affect normal CBC and BMP: 08/14/16 07:27 08/16/16 07:06 ABG, PT/INR, D-dimer: ABG POC ABG pH 7.526 (7.35-7.45) H 08/15/16 14:35 POC ABG pCO2 53.9 (35-45) H 08/15/16 14:35 POC ABG pO2 60 (80-105) L 08/15/16 14:35 POC ABG HCO3 44.7 08/15/16 14:35 POC ABG Total CO2 46 08/15/16 14:35 POC ABG O2 Sat 93 08/15/16 14:35 PT/INR, D-dimer PT 18.6 Sec. (12.2-14.9) H 08/13/16 09:45 INR 1.56 (0.87-1.13) H 08/13/16 09:45 Abnormal lab findings: Abnormal Labs 08/13/16 08/14/16 08/14/16 14:33 05:41 07:27 MCH 27 L RDW 15.5 H Seg Neuts % (Manual) 81.0 H Lymphocytes % (Manual) 7.0 L Nucleated RBC % 1.0 H Lymphocytes # (Manual) 0.6 L POC ABG pH POC ABG pCO2 81.4 H POC ABG pO2 76 L Sodium Chloride Carbon Dioxide BUN Creatinine Glucose POC Glucose 160 H 08/14/16 08/14/16 08/14/16 07:27 12:43 17:53 MCH RDW Seg Neuts % (Manual) Lymphocytes % (Manual) Nucleated RBC % Lymphocytes # (Manual) POC ABG pH POC ABG pCO2 POC ABG pO2 Sodium 146 H Chloride 91.9 L Carbon Dioxide 43 H* D BUN Creatinine 0.5 L Glucose 180 H POC Glucose 188 H 277 H 08/15/16 08/15/16 08/15/16 01:28 07:08 07:30 MCH RDW Seg Neuts % (Manual) Lymphocytes % (Manual) Nucleated RBC % Lymphocytes # (Manual) POC ABG pH POC ABG pCO2 POC ABG pO2 Sodium Chloride 89.7 L Carbon Dioxide 41 H* BUN Creatinine 0.6 L Glucose 169 H POC Glucose 169 H 178 H 08/15/16 08/15/16 08/15/16 12:47 14:21 14:35 MCH RDW Seg Neuts % (Manual) Lymphocytes % (Manual) Nucleated RBC % Lymphocytes # (Manual) POC ABG pH 7.526 H POC ABG pCO2 68.9 H 53.9 H POC ABG pO2 29 L 60 L Sodium Chloride Carbon Dioxide BUN Creatinine Glucose POC Glucose 188 H 08/15/16 08/16/16 18:12 07:06 MCH RDW Seg Neuts % (Manual) Lymphocytes % (Manual) Nucleated RBC % Lymphocytes # (Manual) POC ABG pH POC ABG pCO2 POC ABG pO2 Sodium Chloride 89.1 L Carbon Dioxide 38 H BUN 21 H Creatinine 0.6 L Glucose 125 H POC Glucose 262 H Chest x-ray: report reviewed (Mild CHF or volume Overload.)
[2016-08-16] MEDS: XARELTO PO SCH (21:37)
[2016-08-17] MEDS: CARDIZEM PO SCH ×3 (00:40→12:51)
[2016-08-17] MEDS: DUONEB 0.5 MG-3 MG/3 ML SOLN IH SCH ×3 (02:16→14:01)
[2016-08-17] MEDS: ZOSYN/NS 4.5GM/100ML 4.5 GM/100 ML VIAL IV SCH ×2 (02:20→08:01)
[2016-08-17] MEDS: XANAX PO PRN ×2 (06:16→12:21)
[2016-08-17] MEDS: NEURONTIN PO SCH ×2 (06:16→14:05)
[2016-08-17] MEDS: PERCOCET 5/325 PO PRN ×2 (06:16→12:21)
[2016-08-17] MEDS: LIORESAL PO SCH ×2 (08:00→14:05)
[2016-08-17] MEDS: HYDROMET PO PRN (08:00)
[2016-08-17] MEDS: ALUM-MAG HYDROX-SIMETH 200-200-20MG/5ML PO SCH (08:00)
[2016-08-17] MEDS: ROBAXIN PO PRN ×2 (08:00→14:05)
[2016-08-17] MEDS: ALPHAGAN P 0.15% OD SCH (08:01)
[2016-08-17] MEDS: BROVANA NEBU IH SCH (08:43)
[2016-08-17] MEDS: PULMICORT IH SCH (08:43)
--- NOTE | 2016-08-17 09:03 | Discharge Summary ---
Providers - Providers Date of Admission: 08/13/16 11:35 Date of discharge: 08/17/16 Attending physician: JUAREZ LEON MD 08/13/16 17:12 Consult to Physician [CONS] Routine Consulting Provider: SABA HAWK Reason For Exam: CHF Place consult to:: [facility] Notified:: a service Phone number called:: [phone] Was contact made?: Yes If yes, spoke with:: margaret Time called:: 08:44 08/14/16 06:35 Consult to Wound/ET Nurse [CONS] Routine Reason For Exam: wound eval Primary care physician: [employer] Hospitalization Reason for admission: shortness of breath Condition: Stable Hospital course: Patient is 66 year old female resident of SNF with history of COPD, anxiety, morbid obesity. She presented with shortness of breath and depressed conscious level. Chest x ray showed pulmonary edema. She was diagnosed with acute CHF, COPD eaxcerbation. She was in respiratory distress, therefore given Lasix iv, put on BIPAP and is being admitted. She is very lethargic now, on BIPAP and cannot provide much history. she was seen by cardiology with in initiation of low dose ACEI in setting of CMP. No BB at this time in setting of COPD with acute exacerbation and a recommendation follow up in our office with Michelle Jackson NP, within 1-2 weeks of hospital discharge. patient was also treated with Bipap and steroids with pulmonary evaluation by yacht builder done. On returing to baseline she was discharged back to SNF. fall precaution due xarelto was stressed in detail, Mental status improved back to baseline with discussion given from [facility] Discharge diagnosis * Acute exacerbation of chronic obstructive pulmonary disease * Sinus tachycardia * Acute systolic CHF * Hypertension * H/O deep venous thrombosis * Acute on chronic resp failure with hypoxia and hypercarbia due to COPD exacerbation and acute CHF. * Acute metabolic encephalopathy due to hypercarbia, now resolved * Morbid obesity BMI 39.7 Disposition: DC/[place]-03 SNF [facility] Time spent for discharge: 35 mins Core Measure Documentation - Palliative Care Palliative Care/ Comfort Measures: Not Applicable - Core Measures Any of the following diagnoses?: heart failure - VTE Discharge Requirements Deep Vein Thrombosis/Pulmonary Embolism Present on Admission: No - Heart Failure Discharge Requirements JUNE/ARB for LVSD if EF <40%: Yes Beta ac at discharge: No Reason for no beta ac on DC: COPD Exam - Physical Exam Narrative exam: General: No Apparent Distress HEENT: Positive: EOMI, Normocephaly, Mucus Membranes Moist Neck: Positive: neck supple, trachea midline, Cardiac: Positive: Reg Rate and Rhythm Lungs: Positive: Diminished Trav BS, Oxygen Neuro: Positive: Grossly Intact Abdomen: Positive: Soft, Active Bowel Sounds. Negative: Tender Skin: Positive: Clear. Negative: Rash Musculoskeletal: Normal Range of Motion Extremities: Present: +1 Edema (nonpitting bilateral leg edema with erythema and chronic stasis changes in the left leg) - Constitutional Vitals: Temp Pulse Resp BP Pulse Ox 97.6 F 78 16 131/64 95 08/17/16 05:20 08/17/16 08:43 08/17/16 08:43 08/17/16 05:20 08/17/16 08:42 Plan Activity: advance as tolerated, fall precautions Diet: low salt Special Instructions: record daily weights, record daily BP diary Durable Medical Equipment Needed Upon Discharge: Nebulizer, other (cpap at bedtime) Follow up with: PRIMARY CARE, [Primary Care Provider] - 3-5 Days JUAN THOMAS MD [Staff Physician] - 7 Days NATASHA DO MD [Staff Physician] - 14 Days Prescriptions: ALBUTEROL NEB's [Proventil 0.083% NEBS] 2.5 mg IH Q4HRT PRN #30 nebu PRN Reason: Shortness Of Breath Diltiazem [Cardizem] 30 mg PO Q6HR #30 tablet Ipratropium/Albuterol Sulfate [Duoneb 0.5 mg-3 mg/3 ml Soln] 1 ampul IH Q6HRT # 30 ampul.neb Levofloxacin [Levaquin] 750 mg PO QDAY #3 tablet Lisinopril [Zestril TAB] 2.5 mg PO QDAY #30 tablet Oxycodone HCl/Acetaminophen [Percocet 7.5/325 mg] 1 each PO Q6HR PRN #7 tablet PRN Reason: Pain predniSONE [Deltasone] 10 mg PO .TAPER #48 tab
[2016-08-17] MEDS: CULTURELLE PO SCH (10:00)
[2016-08-17] MEDS ORDERED: ZESTRIL PO SCH (10:00)
[2016-08-17] MEDS: ZOLOFT PO SCH (10:34)
[2016-08-17] MEDS: LEVAQUIN 750MG/150ML 750 MG/150 ML BAG IV SCH (10:34)
[2016-08-17] MEDS: THERAGRAN Tab PO SCH (10:34)
[2016-08-17] MEDS: PEPCID PO SCH (10:34)
[2016-08-17 13:01] VITALS: BP 158/73
== END 2016-08-17 15:23 | DRG 291 ==
LOC: ED 08:58 → 4A 11:35
PROVIDERS: ADMIT Internal Medicine; ATTEND Internal Medicine
PROC: 4A033R1 Measurement of Arterial Saturation, Peripheral, Percutaneous Approach (ICD-10-PCS; principal; 2016-08-13)
PROC: 5A09357 Assistance with Respiratory Ventilation, Less than 24 Consecutive Hours, Continuous Positive Airway Pressure (ICD-10-PCS; 2016-08-13)
DX: I11.0 Hypertensive heart disease with heart failure (principal); J96.22 Acute and chronic respiratory failure with hypercapnia; J96.21 Acute and chronic respiratory failure with hypoxia; G93.41 Metabolic encephalopathy; J44.1 Chronic obstructive pulmonary disease with (acute) exacerbation; E66.9 Obesity, unspecified; K21.9 Gastro-esophageal reflux disease without esophagitis; Z66 Do not resuscitate; I50.43 Acute on chronic combined systolic (congestive) and diastolic (congestive) heart failure; M54.9 Dorsalgia, unspecified; G89.29 Other chronic pain; F17.200 Nicotine dependence, unspecified, uncomplicated; R00.0 Tachycardia, unspecified; Z68.39 Body mass index [BMI] 39.0-39.9, adult; Z88.2 Allergy status to sulfonamides; Z86.718 Personal history of other venous thrombosis and embolism; Z90.710 Acquired absence of both cervix and uterus; Z82.49 Family history of ischemic heart disease and other diseases of the circulatory system
CPT/HCPCS: 36415; 36600; 71010; 80048; 80074; 81001; 82140; 82803; 82962; 83735; 83880; 84484; 85007; 85025; 85610; 85730; 86140; 86850; 86900; 86901; 87040; 87086; 93005; 93010; 93306; 94640; 94660; 94760; 96374; 96375; J1644; J1940; J1956; J2543; J2920; J2930

== ENCOUNTER 2017-06-14 09:42 | Outpatient (CLI) | payer MEDICARE ==
--- NOTE | 2017-06-14 11:17 | Cat Scan Report ---
CT head without contrast: Pain. Axial images are performed. There is moderate decreased periventricular attenuation bilaterally. No focal lesions identified. No extracerebral collections. No significant atrophy considering patient age. No bone lesions. Mucoperiosteal thickening in a posterior right sphenoid air cell. Large focal area of swelling over the high left frontal region. Compared to prior exam in February 2015 there has been improvement in the overall paranasal air cells findings except for the right sphenoid cell. No change in the intracranial findings. Impression: 1. Focal swelling over the left frontal bone. No underlying bone injury or intracranial finding. 2. Chronic thickening in the right sphenoid air cell.
--- NOTE | 2017-06-14 12:09 | Cat Scan Report ---
CT facial bones without contrast: Trauma, pain. Transverse images were obtained through the facial bones with coronal and sagittal 2-D reformatted images. There no fractures and no obvious soft tissue swelling. The orbits are intact as are the globes. The paranasal sinuses are clear. There is a markedly rightward deviated nasal septum but the nasal l structures are not otherwise remarkable. Impression: No acute findings.
--- NOTE | 2017-06-14 12:22 | Cat Scan Report ---
CT right hand/wrist: Trauma, pain, ecchymoses. Transverse images are obtained through the wrist and hand with coronal and sagittal 2-D reformatted images. There is no fracture no dislocation identified. Mild dorsal swelling is identified in the soft tissues predominantly over the distal ulnar. No other obvious soft tissue findings. Impressions: Focal soft tissue swelling. No fracture.
== END 2017-06-14 09:43 | disposition home or self-care (01) ==
LOC: CT 09:42
PROVIDERS: ATTEND Hospitalist
DX: M25.511 Pain in right shoulder (principal); J34.2 Deviated nasal septum; M79.89 Other specified soft tissue disorders; R22.0 Localized swelling, mass and lump, head; R58 Hemorrhage, not elsewhere classified; I10 Essential (primary) hypertension; J45.909 Unspecified asthma, uncomplicated
CPT/HCPCS: 70450; 70486

== ENCOUNTER 2017-07-08 16:07 | Emergency (ER) | payer MEDICARE ==
[2017-07-08 16:19] VITALS: BP 169/76
[2017-07-08 16:42] LABS: Basophils # (Auto) 0.1 K/mm3 (0.0-0.1); Basophils % (Auto) 1.4 % (0.0-1.8); Eosinophils # (Auto) 0.1 K/mm3 (0.0-0.4); Eosinophils % (Auto) 1.4 % (0.0-4.3); Hemoglobin 11.4 gm/dl (10.1-14.3); Lymphocytes # (Auto) 0.7 K/mm3 (1.2-5.4); Lymphocytes % (Auto) 10.9 % (13.4-35.0); Mean Corpuscular HGB Conc 33 % (30-34); Mean Corpuscular Hemoglobin 28 pg (28-32); Mean Corpuscular Volume 86 fl (79-97); Monocytes # (Auto) 0.3 K/mm3 (0.0-0.8); Monocytes % (Auto) 5.6 % (0.0-7.3); Platelet Count 185 K/mm3 (140-440); Red Blood Count 4.05 M/mm3 (3.65-5.03); Red Cell Distribution Width 14.1 % (13.2-15.2)
[2017-07-08 17:01] LABS: BUN/Creatinine Ratio 10; Blood Urea Nitrogen 5 mg/dL (7-17); Calcium 9.1 mg/dL (8.4-10.2); Hemolysis Index 6
[2017-07-08] MEDS ORDERED: ZOFRAN IV ONE (20:53)
[2017-07-08] MEDS ORDERED: ZOFRAN ODT PO ONE (20:55)
[2017-07-08] MEDS ORDERED: PERCOCET 5/325 PO ONE (21:00)
--- NOTE | 2017-07-08 21:05 | Emergency Department Report ---
HPI - General Chief Complaint: Dyspnea/Respdistress Time Seen by Provider: 07/08/17 20:40 - HPI HPI: Room 36 The patient is a 67-year-old female presenting with a chief complaint of nasal pain and intermittent epistaxis. The patient states on 06/07/2017 she actually slipped and fell out of her wheelchair while sleeping and landed on her face. Patient states she thinks she lost consciousness. The patient states she's had intermittent epistaxis from the right nose since the fall. The patient states she has difficulty lawn her right naris secondary to injuries from the fall. The patient was scheduled to see in semiconductor packages leak tester today however her [facility] was unable to arrange the transport and the patient was subsequently sent to the ED. The patient states she has had some nausea and vomiting yesterday and today. Patient was sent to the hospital for [address] scan of the head, face and right upper extremity and evaluation of her fall and the CT did not reveal any acute abnormalities outside of a rightward deviated nasal septum Location: Right naris Duration: One month Quality: Pain, congestion Severity: Moderate Modifying factors: [see above] Context: [see above] Mode of transportation: [not driving] ED Past Medical Hx - Past Medical History Hx Hypertension: Yes Hx Deep Vein Thrombosis: Yes Hx GERD: Yes Hx Asthma: Yes Hx COPD: Yes Additional medical history: fx back, chronic back pain. sleep apnea, spinal fracture,DVT,anxiety,medication overdose - Surgical History Additional Surgical History: partial hysterectomy. tonsillectomy - Family History Family history: no significant - Social History Smoking Status: Former Smoker (none 1 year) Substance Use Type: None - Medications Home Medications: Home Medications Medication Instructions Recorded Confirmed Last Taken Type ALPRAZolam [Xanax TAB] 0.5 mg PO QID PRN 08/13/16 08/13/16 Unknown History Albuterol Sulfate [Ventolin HFA] 2 puff IH Q4H PRN 08/13/16 08/13/16 Unknown History Baclofen [Lioresal] 10 mg PO TID 08/13/16 08/13/16 Unknown History Brimonidine 0.15% [Alphagan P 100 drops OD TID 08/13/16 08/13/16 Unknown History 0.15%] Budesoni/Formoterol 80-4.5(Nf) 2 puff IH BID 08/13/16 08/13/16 Unknown History [Symbicort 80-4.5 (Nf)] Cyanocobalamin [Vitamin B-12] 1,000 mcg IM QMONTH 08/13/16 08/13/16 Unknown History Famotidine [Pepcid] 10 mg PO BID 08/13/16 08/13/16 Unknown History Fluorometholone [Fml Forte 0.25% 1 drop OP QID 08/13/16 08/13/16 Unknown History eye drops] Furosemide [Lasix TAB] 40 mg PO QDAY 08/13/16 08/13/16 Unknown History Gabapentin [Neurontin] 800 mg PO Q8H 08/13/16 08/13/16 Unknown History Lactobacillus 3/Fos/Pantethine 1 each PO DAILY 08/13/16 08/13/16 Unknown History [Probiotic & Acidophilus Cap] Latanoprost 0.005% 1 drop OP QPM 08/13/16 08/13/16 Unknown History Loperamide [Imodium] 2 mg PO Q2HR PRN 08/13/16 08/13/16 Unknown History Mag Hydrox/Aluminum Hyd/Simeth 30 ml PO TID 08/13/16 08/13/16 Unknown History [Maalox Advanced Suspension] Melatonin/Pyridoxine [Melatonin 3 2 tab PO DAILY 08/13/16 08/13/16 Unknown History mg Tablet] Multivitamin Tab [Multiple Vitamin 1 each PO QDAY 08/13/16 08/13/16 Unknown History TAB (Theragran)] Potassium Citrate [Potassium 20 meq PO DAILY 08/13/16 08/13/16 Unknown History Citrate ER] Rivaroxaban [Xarelto] 15 mg PO QHS 08/13/16 08/13/16 Unknown History Sertraline [Zoloft] 50 mg PO QDAY 08/13/16 08/13/16 Unknown History guaiFENesin DM [Robitussin Dm] 10 ml PO Q6HR PRN 08/13/16 08/13/16 Unknown History methOCARBAMOL [Robaxin TAB] 500 mg PO Q6H PRN 08/13/16 08/13/16 Unknown History ALBUTEROL NEB's [Proventil 0.083% 2.5 mg IH Q4HRT PRN #30 nebu 08/17/16 Unknown Rx NEBS] Diltiazem [Cardizem] 30 mg PO Q6HR #30 tablet 08/17/16 Unknown Rx Ipratropium/Albuterol Sulfate 1 ampul IH Q6HRT #30 ampul.neb 08/17/16 Unknown Rx [DUONEB *Not for PRN Use*] Levofloxacin [Levaquin] 750 mg PO QDAY #3 tablet 08/17/16 Unknown Rx Lisinopril [Zestril TAB] 2.5 mg PO QDAY #30 tablet 08/17/16 Unknown Rx Oxycodone HCl/Acetaminophen 1 each PO Q6HR PRN #7 tablet 08/17/16 Unknown Rx [Percocet 7.5/325 mg] predniSONE [Deltasone] 10 mg PO .TAPER #48 tab 08/17/16 Unknown Rx Oxymetazoline 0.05% [Afrin] 2 spray NS Q12H #1 bottle 07/08/17 Unknown Rx ED Review of Systems ROS: Stated complaint: DIFFICULTY BREATHING Other details as noted in HPI ENT: epistaxis, congestion, other (nasal pain) Gastrointestinal: nausea, vomiting Physical Exam - Physical Exam Vital Signs: Vital Signs 07/08/17 16:15 Temperature 98.7 F Pulse Rate 82 Respiratory 21 Rate Blood Pressure 169/76 O2 Sat by Pulse 95 Oximetry Physical Exam: GENERAL: The patient is well-developed well-nourished female sitting on stretcher not appearing to be in acute distress. [] HEENT: Normocephalic. Atraumatic. Extraocular motions are intact. Patient has moist mucous membranes. Small amount of pink granulation tissue at introitus of right naris measuring approximately 3 mm x 3 mm. No epistaxis present. No septal hematoma visualized NECK: Supple. Trachea midline CHEST/LUNGS: There is no respiratory distress noted. HEART/CARDIOVASCULAR: Regular. There is no tachycardia. ABDOMEN: Intermittent vomiting during exam. There is no abdominal distention. SKIN: There is no rash. There is no diaphoresis. NEURO: The patient is awake, alert, and oriented. The patient is cooperative. The patient has normal speech. MUSCULOSKELETAL: There is no evidence of acute injury. ED Course Vital Signs 07/08/17 16:15 Temperature 98.7 F Pulse Rate 82 Respiratory 21 Rate Blood Pressure 169/76 O2 Sat by Pulse 95 Oximetry - Reevaluation(s) Reevaluation #1: 05/04/18 21:51 Patient tolerating po ED Medical Decision Making - Lab Data Result diagrams: 07/08/17 16:23 07/08/17 16:23 Laboratory Tests 07/08/17 07/08/17 16:23 16:23 WBC 6.2 RBC 4.05 Hgb 11.4 Hct 35.0 MCV 86 MCH 28 MCHC 33 RDW 14.1 Plt Count 185 Lymph % (Auto) 10.9 L [place] % (Auto) 5.6 Eos % (Auto) 1.4 Baso % (Auto) 1.4 Lymph # 0.7 L [place] # 0.3 Eos # 0.1 Baso # 0.1 Seg Neutrophils % 80.7 H Seg Neutrophils # 5.0 Sodium 142 Potassium 3.9 Chloride 100.4 Carbon Dioxide 29 Anion Gap 17 BUN 5 L Creatinine 0.5 L Estimated GFR > 60 BUN/Creatinine Ratio 10 Glucose 107 H Calcium 9.1 - Radiology Data Radiology results: report reviewed (CT head, CT facial bones from 06/14/2017) - Differential Diagnosis epistaxis Critical care attestation.: If time is entered above; I have spent that time in minutes in the direct care of this critically ill patient, excluding procedure time. ED Disposition Clinical Impression: Deviated nasal septum, Nasal pain, Recurrent epistaxis Disposition: DC-01 TO HOME OR SELFCARE Is pt being admited?: No Does the pt Need Aspirin: No Condition: Stable Instructions: Epistaxis (ED) Additional Instructions: Return to the emergency department immediately should you develop worsening symptoms, fever, inability to tolerate food or liquid or any other concerns. Prescriptions: Oxymetazoline 0.05% [Afrin] 2 spray NS Q12H #1 bottle Referrals: MING MYLES MD [Staff Physician] - [facility] (Dr Myles is an semiconductor packages leak tester ( ear nose and throat doctor). Please follow up with him or your ENT for further evaluation) Time of Disposition: 21:52
[2017-07-08] MEDS ORDERED: ZOFRAN ODT ONE (21:08)
== END 2017-07-09 02:05 | disposition home or self-care (01) ==
LOC: ED 16:07
DX: J34.2 Deviated nasal septum (principal); R04.0 Epistaxis; J34.89 Other specified disorders of nose and nasal sinuses; I10 Essential (primary) hypertension; K21.9 Gastro-esophageal reflux disease without esophagitis; J44.9 Chronic obstructive pulmonary disease, unspecified; J45.909 Unspecified asthma, uncomplicated; G89.29 Other chronic pain; Z90.711 Acquired absence of uterus with remaining cervical stump; Z86.718 Personal history of other venous thrombosis and embolism; Z90.89 Acquired absence of other organs; Z87.891 Personal history of nicotine dependence
CPT/HCPCS: 36415; 80048; 85025; 99283; J2405; Q0162

== ENCOUNTER 2018-12-13 08:47 | Outpatient (CLI) | payer MEDICARE ==
[2018-12-13 09:56] LABS: Blood Urea Nitrogen 13 mg/dL (7-17)
--- NOTE | 2018-12-13 13:36 | Cat Scan Report ---
CT ABDOMEN AND PELVIS WITH CONTRAST HISTORY: , Abdominal pain and constipation. COMPARISON: CT pelvis 03/14/2014. No CT abdomen comparison. TECHNIQUE: Routine abdominal and pelvic CT exam performed following intravenous and oral contrast ad ministration.. All CT scans at this location are performed using CT dose reduction for ALARA by means of automated exposure control. 100 cc of Omnipaque 300 was injected intravenously without incident. Consent was obtained prior to the administration of contrast. FINDINGS: CT ABDOMEN: Lung Bases: No significant abnormality. Liver: Normal. Biliary: Contracted gallbladder with no stones. Normal bile ducts. Spleen: Normal. Pancreas: Atrophic but otherwise normal. The pancreatic head is particularly atrophic. No signs of ac stanley pancreatitis. Adrenals: No significant abnormality. Kidneys: Normal. The renal collecting systems and ureters are nondilated. No urinary calculi. Lymphatics: Calcification and tortuosity of the abdominal aorta and its branches. Bilateral renal art loulou calcification. Vasculature: No significant abnormality. Bowel/Peritoneum: No significant abnormality. No free air. No free fluid. Appendix not visualized. No pericecal inflammation. CT PELVIC: : Normal urinary bladder and ovaries. Status post hysterectomy. Normal rectum and sigmoid colon. Lymphatics: No lymphadenopathy. Osseous Structures: No aggressive appearing osseous lesions. Additional Findings: Prominent bilateral collateral veins of the anterior lower abdominal wall. The f emoral veins and iliac veins are patent with no evidence of thrombus. IMPRESSION: 1. No acute findings. 2. Atrophic pancreas but no signs of acute pancreatitis. 3. Status post hysterectomy and appendectomy. 4. Prominent collateral veins of the lower anterior abdominal wall suggest a history of previous pelv ic or lower extremity venous thrombosis but no evidence of acute or chronic thrombus. Signer Name: Vinny Alonso MD Signed: 12/13/2018 1:32 PM Workstation Name: [id number]
== END 2018-12-13 08:48 | disposition home or self-care (01) ==
LOC: CT 08:47
PROVIDERS: ATTEND Nurse Practitioner
DX: K59.00 Constipation, unspecified (principal); R10.84 Generalized abdominal pain; I10 Essential (primary) hypertension; J44.9 Chronic obstructive pulmonary disease, unspecified; K21.9 Gastro-esophageal reflux disease without esophagitis; F17.200 Nicotine dependence, unspecified, uncomplicated
CPT/HCPCS: 36415; 74177; 82565; 84520; Q9967